=== PATIENT | female | born 1955 | race African-American/Black ===

== ENCOUNTER 2017-06-01 19:21 | Emergency (ER) | payer MEDICAID ==
[~2017-06-01] VITALS: Ht 170.2 cm; Wt 81.8 kg
[~2017-06-01 19:21] MED LIST: LASIX; MOTRIN; POTASSIUM; RISP1TAB89; TRAM50TA2
[2017-06-01] MEDS ORDERED: GABA-533 PO (19:36)
[2017-06-01] MEDS ORDERED: ACETAMINOPHEN 325 MG TABLET PO ONE (20:30)
[2017-06-01 21:16] VITALS: BP 141/84
== END 2017-06-01 21:49 | disposition home or self-care (01) ==
LOC: EMS 19:23
DX: H57.13 Ocular pain, bilateral (principal); J45.909 Unspecified asthma, uncomplicated; Z88.0 Allergy status to penicillin; F17.210 Nicotine dependence, cigarettes, uncomplicated
CPT/HCPCS: 99283

== ENCOUNTER 2018-10-24 12:51 | Inpatient (IN) | payer MEDICAID ==
[~2018-10-24] VITALS: Ht 172.7 cm; Wt 99.3 kg
[~2018-10-24 12:51] MED LIST changes: +GABA-533 PO
[2018-10-24] MEDS ORDERED: VANCOMYCIN HCL 1 GM/D5% WATER 200 ML IV ONE (13:45)
[2018-10-24] MEDS ORDERED: KETOROLAC TROMETHAMINE 30 MG/ML VIAL IVP ONE (14:00)
[2018-10-24 14:16] LABS: BASOPHILS % (AUTO) 0.4 % (0.0-2.0); EOSINOPHILS % (AUTO) 0.4 % (1.0-6.0); HEMATOCRIT 39.5 % (36-46); HEMOGLOBIN 13.1 g/dL (12.0-16.0); LYMPHOCYTES # (AUTO) 1.1 K/uL (1.0-4.8); LYMPHOCYTES % (AUTO) 12.1 % (22.0-44.0); MEAN CORPUSCULAR HEMOGLOBIN 31.7 pg (26.0-34.0); MEAN CORPUSCULAR HGB CONC 33.1 G/dL (31.0-37.0); MEAN CORPUSCULAR VOLUME 96 fL (80-100); MONOCYTES # (AUTO) 0.8 K/uL (0.1-1.0); MONOCYTES % (AUTO) 9.1 % (2.0-9.0); PLATELET COUNT (AUTO) 176 K/uL (150-450); RED BLOOD CELL COUNT(AUTO) 4.12 MIL/uL (4.00-5.20); RED CELL DISTRIBUTION WIDTH 13.1 % (11.5-14.5)
[2018-10-24 14:29] LABS: ANION GAP 12 mmol/L (8-16); CALCIUM, TOTAL 9.6 mg/dL (8.8-10.5); CARBON DIOXIDE 23 mmol/L (22-29); CHLORIDE 101 mmol/L (98-107); CREATININE 0.87 mg/dL (0.60-1.30); GLOMERULAR FILTR. RATE CALC > 60 mL/min (>60); GLUCOSE,RANDOM 83 mg/dL (70-110); POTASSIUM 3.5 mmol/L (3.5-5.1); SODIUM SERUM 136 mmol/L (136-145); UREA NITROGEN, BLOOD 14 mg/dL (7-18)
[2018-10-24 14:36] LABS: LACTIC ACID 1.4 mmol/L (0.4-2.0)
[2018-10-24 14:41] LABS: B-TYPE NATRIURETIC PEPTIDE 102 pg/mL (0-100)
[2018-10-24 14:42] LABS: ALANINE AMINOTRANSFERASE 33 U/L (12-78); ALBUMIN 3.3 g/dL (3.4-5.0); ALKALINE PHOSPHATASE 132 U/L (46-116); ASPARTATE AMINOTRANSFERASE 30 U/L (15-37); BILIRUBIN,TOTAL 0.9 mg/dL (0.1-1.0); TOTAL PROTEIN, SERUM 8.4 g/dL (6.4-8.2)
[2018-10-24] MEDS ORDERED: ONDANSETRON HCL 4 MG/2 ML VIAL IVP PRN ×2 (15:00→15:15)
[2018-10-24] MEDS ORDERED: LEVOFLOXACIN 500 MG/D5% WATER 100 ML IV SCH (15:00)
[2018-10-24] MEDS ORDERED: ACETAMINOPHEN 325 MG TABLET PO PRN ×2 (15:00→15:15)
[2018-10-24] MEDS ORDERED: MAGNESIUM HYDROXIDE SUSPENSION 30 ML UDCUP PO PRN (15:15)
[2018-10-24] MEDS ORDERED: MORPHINE SULFATE 2 MG/ML SYRINGE IVP PRN (15:15)
[2018-10-24] MEDS ORDERED: ALBUTEROL SULFATE 2.5 MG/0.5 ML NEB SOLUTION NEB PRN (15:15)
[2018-10-24] MEDS ORDERED: BISACODYL 10 MG RECTAL RECTAL SUPPOSITORY PR PRN (15:15)
[2018-10-24] MEDS ORDERED: IPRATROPIUM BROMIDE 0.5 MG/2.5 ML NEB SOLUTION NEB PRN (15:15)
[2018-10-24] MEDS ORDERED: TraMADol HCL 50 MG TABLET PO PRN (15:15)
[2018-10-24] MEDS ORDERED: DOCUSATE SODIUM 100 MG CAPSULE PO PRN (15:15)
[2018-10-24] MEDS ORDERED: 0.9% SODIUM CHLORIDE 10 ML SYRINGE IVP PRN (15:15)
[2018-10-24] MEDS ORDERED: SODIUM CHLORIDE 0.9% 500 ML IV ONE (15:50)
[2018-10-24 16:00] VITALS: BP 114/69
[2018-10-24] MEDS: LACTOBACILLUS ACIDOPHILUS/BULGARICUS TABLET PO SCH ×2 (17:21→21:27)
[2018-10-24] MEDS ORDERED: ALBUTEROL SULFATE 2.5 MG/0.5 ML NEB SOLUTION NEB SCH (18:00)
[2018-10-24] MEDS ORDERED: PNEUMOCOCCAL VACCINE POLYVALENT 0.5 ML VIAL [PPSV23] IM ONE (20:45)
[2018-10-24] MEDS: HEPARIN SODIUM,PORCINE 5,000 UNITS/ML VIAL SQ SCH (21:27)
[2018-10-24] MEDS: FAMOTIDINE 20 MG TABLET PO SCH (21:27)
[2018-10-25 00:15] VITALS: BP 118/74
[2018-10-25 03:30] VITALS: BP 121/76
[2018-10-25 05:18] LABS: AMPHET/METH SCREEN,URINE POSITIVE (NEGATIVE); BARBITURATE SCREEN, URINE NEGATIVE (NEGATIVE); BENZODIAZEPINES SCREEN,URINE NEGATIVE (NEGATIVE); CANNABINOID SCREEN,URINE POSITIVE (NEGATIVE); COCAINE SCREEN,URINE POSITIVE (NEGATIVE); METHADONE SCREEN, URINE NEGATIVE (NEGATIVE); OPIATE SCREEN,URINE POSITIVE (NEGATIVE); PHENCYCLIDINE SCREEN,URINE NEGATIVE (NEGATIVE)
[2018-10-25] MEDS ORDERED: IPRATROPIUM BROMIDE 0.5 MG/2.5 ML NEB SOLUTION NEB PRN (06:15)
[2018-10-25] MEDS ORDERED: ALBUTEROL SULFATE 2.5 MG/0.5 ML NEB SOLUTION NEB PRN (06:15)
[2018-10-25 06:19] LABS: BASOPHILS % (AUTO) 0.5 % (0.0-2.0); EOSINOPHILS % (AUTO) 3.7 % (1.0-6.0); HEMOGLOBIN 11.7 g/dL (12.0-16.0); LYMPHOCYTES # (AUTO) 1.5 K/uL (1.0-4.8); LYMPHOCYTES % (AUTO) 34.7 % (22.0-44.0); MEAN CORPUSCULAR HEMOGLOBIN 32.4 pg (26.0-34.0); MEAN CORPUSCULAR HGB CONC 33.3 G/dL (31.0-37.0); MEAN CORPUSCULAR VOLUME 98 fL (80-100); MONOCYTES # (AUTO) 0.4 K/uL (0.1-1.0); MONOCYTES % (AUTO) 8.4 % (2.0-9.0); NEUTROPHILS # (AUTO) 2.2 K/uL (1.8-7.7); NEUTROPHILS % (AUTO) 52.7 % (40.0-70.0); PLATELET COUNT (AUTO) 131 K/uL (150-450); RED CELL DISTRIBUTION WIDTH 13.6 % (11.5-14.5)
[2018-10-25] MEDS: VANCOMYCIN HCL 1 GM/D5% WATER 200 ML IV SCH ×2 (06:30→17:59)
[2018-10-25] MEDS ORDERED: MORPHINE SULFATE 2 MG/ML SYRINGE IVP PRN (06:30)
[2018-10-25 06:49] LABS: ALANINE AMINOTRANSFERASE 23 U/L (12-78); ALBUMIN 2.7 g/dL (3.4-5.0); ALKALINE PHOSPHATASE 109 U/L (46-116); ANION GAP 8 mmol/L (8-16); ASPARTATE AMINOTRANSFERASE 25 U/L (15-37); BILIRUBIN,TOTAL 0.6 mg/dL (0.1-1.0); CALCIUM, TOTAL 8.6 mg/dL (8.8-10.5); CARBON DIOXIDE 27 mmol/L (22-29); CHLORIDE 103 mmol/L (98-107); CREATININE 0.93 mg/dL (0.60-1.30); GLOMERULAR FILTR. RATE CALC > 60 mL/min (>60); GLUCOSE,RANDOM 85 mg/dL (70-110); POTASSIUM 3.7 mmol/L (3.5-5.1); SODIUM SERUM 138 mmol/L (136-145); UREA NITROGEN, BLOOD 16 mg/dL (7-18)
[2018-10-25 07:25] VITALS: BP 100/55
[2018-10-25] MEDS: HEPARIN SODIUM,PORCINE 5,000 UNITS/ML VIAL SQ SCH ×2 (07:39→20:50)
[2018-10-25] MEDS: LACTOBACILLUS ACIDOPHILUS/BULGARICUS TABLET PO SCH ×2 (07:39→20:49)
[2018-10-25] MEDS: FAMOTIDINE 20 MG TABLET PO SCH ×2 (07:39→20:49)
[2018-10-25 11:10] VITALS: BP 111/61
[2018-10-25] MEDS: MULTIVITAMINS, THERAPEUTIC TABLET PO SCH (13:36)
[2018-10-25] MEDS: MAGNESIUM OXIDE 400 MG TABLET PO PRN ×3 (13:36→23:48)
[2018-10-25 15:10] VITALS: BP 104/57
[2018-10-25] MEDS: LEVOFLOXACIN 500 MG/D5% WATER 100 ML IV SCH (16:48)
[2018-10-25] MEDS: TraMADol HCL 50 MG TABLET PO PRN ×2 (18:02→23:48)
[2018-10-25 19:00] VITALS: BP 120/74
[2018-10-25] MEDS: GABAPENTIN 400 MG CAPSULE PO SCH (20:49)
[2018-10-25] MEDS: IPRATROPIUM BROMIDE 0.5 MG/2.5 ML NEB SOLUTION NEB SCH (21:05)
[2018-10-25] MEDS: ALBUTEROL SULFATE 2.5 MG/0.5 ML NEB SOLUTION NEB SCH (21:05)
[2018-10-26 00:03] VITALS: BP 121/76
[2018-10-26] MEDS: ALBUTEROL SULFATE 2.5 MG/0.5 ML NEB SOLUTION NEB SCH ×4 (02:00→20:00)
[2018-10-26] MEDS: IPRATROPIUM BROMIDE 0.5 MG/2.5 ML NEB SOLUTION NEB SCH ×4 (02:00→20:00)
[2018-10-26 04:00] VITALS: BP 122/93
[2018-10-26 06:04] LABS: ANION GAP 8 mmol/L (8-16); CALCIUM, TOTAL 8.9 mg/dL (8.8-10.5); CARBON DIOXIDE 27 mmol/L (22-29); CHLORIDE 106 mmol/L (98-107); CREATININE 0.89 mg/dL (0.60-1.30); GLOMERULAR FILTR. RATE CALC > 60 mL/min (>60); GLUCOSE,RANDOM 94 mg/dL (70-110); POTASSIUM 3.9 mmol/L (3.5-5.1); SODIUM SERUM 141 mmol/L (136-145); UREA NITROGEN, BLOOD 15 mg/dL (7-18); VANCOMYCIN,RANDOM 12.3 mcg/mL (25.0-50.0)
[2018-10-26] MEDS: VANCOMYCIN HCL 1 GM/D5% WATER 200 ML IV SCH (07:08)
[2018-10-26] MEDS: FAMOTIDINE 20 MG TABLET PO SCH ×2 (08:19→20:28)
[2018-10-26] MEDS: LACTOBACILLUS ACIDOPHILUS/BULGARICUS TABLET PO SCH ×2 (08:19→20:28)
[2018-10-26] MEDS: MULTIVITAMINS, THERAPEUTIC TABLET PO SCH (08:20)
[2018-10-26] MEDS: GABAPENTIN 400 MG CAPSULE PO SCH ×2 (08:20→20:29)
[2018-10-26] MEDS: HEPARIN SODIUM,PORCINE 5,000 UNITS/ML VIAL SQ SCH ×2 (08:20→20:29)
[2018-10-26] MEDS: MAGNESIUM OXIDE 400 MG TABLET PO PRN ×3 (08:20→17:22)
[2018-10-26 08:47] VITALS: BP 143/86
[2018-10-26 12:32] VITALS: BP 109/73
[2018-10-26 15:45] VITALS: BP 149/90
[2018-10-26] MEDS: LEVOFLOXACIN 500 MG/D5% WATER 100 ML IV SCH (17:22)
[2018-10-26] MEDS ORDERED: SODIUM CHLORIDE 0.9% 500 ML IV ONE (17:35)
[2018-10-26] MEDS: VANCOMYCIN HCL 1.25 GM in DEXTROSE 5%-WATER 250 ML IV SCH (18:34)
[2018-10-26 20:25] VITALS: BP 126/85
[2018-10-27] MEDS: IPRATROPIUM BROMIDE 0.5 MG/2.5 ML NEB SOLUTION NEB SCH ×3 (02:00→14:00)
[2018-10-27] MEDS: ALBUTEROL SULFATE 2.5 MG/0.5 ML NEB SOLUTION NEB SCH ×3 (02:00→14:00)
[2018-10-27 05:17] VITALS: BP 136/89
[2018-10-27] MEDS: VANCOMYCIN HCL 1.25 GM in DEXTROSE 5%-WATER 250 ML IV SCH (05:52)
[2018-10-27 06:22] LABS: ANION GAP 7 mmol/L (8-16); CALCIUM, TOTAL 9.5 mg/dL (8.8-10.5); CARBON DIOXIDE 27 mmol/L (22-29); CHLORIDE 104 mmol/L (98-107); CREATININE 0.84 mg/dL (0.60-1.30); GLOMERULAR FILTR. RATE CALC > 60 mL/min (>60); GLUCOSE,RANDOM 89 mg/dL (70-110); POTASSIUM 4.3 mmol/L (3.5-5.1); SODIUM SERUM 138 mmol/L (136-145); UREA NITROGEN, BLOOD 11 mg/dL (7-18)
[2018-10-27 07:15] VITALS: BP 136/85
[2018-10-27] MEDS: LACTOBACILLUS ACIDOPHILUS/BULGARICUS TABLET PO SCH (08:55)
[2018-10-27] MEDS: GABAPENTIN 400 MG CAPSULE PO SCH (08:56)
[2018-10-27] MEDS: HEPARIN SODIUM,PORCINE 5,000 UNITS/ML VIAL SQ SCH (08:56)
[2018-10-27] MEDS: MULTIVITAMINS, THERAPEUTIC TABLET PO SCH (08:56)
[2018-10-27] MEDS: FAMOTIDINE 20 MG TABLET PO SCH (08:56)
[2018-10-27 11:07] VITALS: BP 121/83
[2018-10-27] MEDS ORDERED: CIPR-278 PO (11:51)
[2018-10-27] MEDS ORDERED: BACTDSB PO (11:52)
[2018-10-27 15:18] VITALS: BP 143/84
== END 2018-10-27 16:30 | disposition home or self-care (01) | DRG 383 ==
LOC: EMS 12:51 → 4E 15:07
PROVIDERS: ADMIT Internal Medicine; ATTEND Internal Medicine
DX: L03.116 Cellulitis of left lower limb (principal); D61.818 Other pancytopenia; E66.01 Morbid (severe) obesity due to excess calories; I50.9 Heart failure, unspecified; F25.9 Schizoaffective disorder, unspecified; G62.9 Polyneuropathy, unspecified; L03.115 Cellulitis of right lower limb; F14.90 Cocaine use, unspecified, uncomplicated; F17.210 Nicotine dependence, cigarettes, uncomplicated; J45.909 Unspecified asthma, uncomplicated; Z68.33 Body mass index [BMI] 33.0-33.9, adult; Z59.0 Homelessness; Z88.1 Allergy status to other antibiotic agents
CPT/HCPCS: 80307; 83605; 83735; 84145; 87040; 87070; 87081; 87205; 93306; 93925; 93970; 94640; 96365; 96375; 97116; 97162; G0378; G0480; J1644; J1885; J1956; J3370; J7040; J7060

== ENCOUNTER 2019-01-10 17:18 | Emergency (ER) | payer MEDICAID ==
[~2019-01-10] VITALS: Ht 170.2 cm; Wt 115.0 kg
[~2019-01-10 17:18] MED LIST changes: +BACTDSB PO; +CIPR-278 PO; -LASIX; -MOTRIN; -POTASSIUM; -RISP1TAB89; -TRAM50TA2
[2019-01-10] MEDS ORDERED: CITA-106 PO (17:51)
[2019-01-10] MEDS ORDERED: ATOR40TA28 PO (17:51)
[2019-01-10] MEDS ORDERED: FURO40I IM (17:51)
[2019-01-10] MEDS ORDERED: ALBU8HFA IH (17:51)
[2019-01-10] MEDS ORDERED: METO25 PO (17:51)
[2019-01-10 18:06] VITALS: BP 126/89
[2019-01-10] MEDS ORDERED: FURO40 PO (18:08)
[2019-01-10] MEDS ORDERED: ACETAMINOPHEN 500 MG TABLET PO ONE (18:15)
== END 2019-01-10 18:42 | disposition home or self-care (01) ==
LOC: EMS 17:29
DX: S81.802A Unspecified open wound, left lower leg, initial encounter (principal); S81.801A Unspecified open wound, right lower leg, initial encounter; G89.29 Other chronic pain; M79.662 Pain in left lower leg; M79.661 Pain in right lower leg; I50.9 Heart failure, unspecified; J45.909 Unspecified asthma, uncomplicated; F10.20 Alcohol dependence, uncomplicated; F11.90 Opioid use, unspecified, uncomplicated; F15.90 Other stimulant use, unspecified, uncomplicated; Z59.0 Homelessness; Z79.899 Other long term (current) drug therapy; Z88.1 Allergy status to other antibiotic agents; Z98.890 Other specified postprocedural states; X58.XXXA Exposure to other specified factors, initial encounter; Y93.89 Activity, other specified; Y92.89 Other specified places as the place of occurrence of the external cause; Y99.8 Other external cause status

== ENCOUNTER 2019-01-21 17:17 | Inpatient (IN) | payer MEDICAID ==
[~2019-01-21] VITALS: Ht 172.7 cm; Wt 103.5 kg
[~2019-01-21 17:17] MED LIST changes: +ALBU8HFA IH; +ATOR40TA28 PO; -BACTDSB PO; -CIPR-278 PO; +CITA-106 PO; +FURO40 PO; +METO25 PO
[2019-01-21 18:01] LABS: BASOPHILS % (AUTO) 0.5 % (0.0-2.0); EOSINOPHILS % (AUTO) 2.3 % (1.0-6.0); LYMPHOCYTES # (AUTO) 1.2 K/uL (1.0-4.8); LYMPHOCYTES % (AUTO) 18.8 % (22.0-44.0); MEAN CORPUSCULAR HEMOGLOBIN 32.1 pg (26.0-34.0); MEAN CORPUSCULAR HGB CONC 32.5 G/dL (31.0-37.0); MEAN CORPUSCULAR VOLUME 99 fL (80-100); MONOCYTES # (AUTO) 0.7 K/uL (0.1-1.0); MONOCYTES % (AUTO) 11.2 % (2.0-9.0); NEUTROPHILS # (AUTO) 4.4 K/uL (1.8-7.7); NEUTROPHILS % (AUTO) 67.2 % (40.0-70.0); PLATELET COUNT (AUTO) 200 K/uL (150-450); RED BLOOD CELL COUNT(AUTO) 3.75 MIL/uL (4.00-5.20); RED CELL DISTRIBUTION WIDTH 13.4 % (11.5-14.5)
[2019-01-21 18:30] LABS: ANION GAP 14 mmol/L (8-16); CALCIUM, TOTAL 9.7 mg/dL (8.8-10.5); CARBON DIOXIDE 22 mmol/L (22-29); CHLORIDE 102 mmol/L (98-107); CREATININE 0.79 mg/dL (0.60-1.30); GLOMERULAR FILTR. RATE CALC > 60 mL/min (>60); GLUCOSE,RANDOM 109 mg/dL (70-110); POTASSIUM 3.6 mmol/L (3.5-5.1); SODIUM SERUM 138 mmol/L (136-145); UREA NITROGEN, BLOOD 13 mg/dL (7-18)
[2019-01-21 18:35] LABS: ALBUMIN 3.5 g/dL (3.4-5.0); ALKALINE PHOSPHATASE 132 U/L (46-116); ASPARTATE AMINOTRANSFERASE 33 U/L (15-37); TOTAL PROTEIN, SERUM 8.2 g/dL (6.4-8.2)
[2019-01-21 18:36] LABS: LACTIC ACID 0.8 mmol/L (0.4-2.0)
[2019-01-21] MEDS ORDERED: ACETAMINOPHEN 500 MG TABLET PO ONE (18:45)
[2019-01-21] MEDS ORDERED: KETOROLAC TROMETHAMINE 30 MG/ML VIAL IVP ONE (18:45)
[2019-01-21 18:52] LABS: MAGNESIUM 1.8 mg/dL (1.80-2.40)
[2019-01-21 18:54] LABS: APPEARANCE,URINE CLEAR (CLEAR); BILIRUBIN,URINE PRELIM. POSITIVE (NEGATIVE); GLUCOSE, URINE (UA) NEGATIVE (NEGATIVE); KETONES,URINE NEGATIVE (NEGATIVE); LEUKOCYTE ESTERASE ,URINE SMALL (NEGATIVE); NITRATE,URINE NEGATIVE (NEGATIVE); OCCULT BLOOD,URINE NEGATIVE (NEGATIVE); PROTEIN,URINE NEGATIVE (NEGATIVE)
[2019-01-21 18:59] LABS: AMPHET/METH SCREEN,URINE POSITIVE (NEGATIVE); BARBITURATE SCREEN, URINE NEGATIVE (NEGATIVE); BENZODIAZEPINES SCREEN,URINE NEGATIVE (NEGATIVE); CANNABINOID SCREEN,URINE POSITIVE (NEGATIVE); COCAINE SCREEN,URINE POSITIVE (NEGATIVE); METHADONE SCREEN, URINE NEGATIVE (NEGATIVE); OPIATE SCREEN,URINE NEGATIVE (NEGATIVE)
[2019-01-21 19:00] LABS: PHENCYCLIDINE SCREEN,URINE NEGATIVE (NEGATIVE)
[2019-01-21 19:05] LABS: BACTERIA,URINE Rare /HPF (None Seen); RBC,URINE 0-2 /HPF (0-2)
[2019-01-21 19:06] LABS: SQUAMOUS EPITHELIAL CELL,UR Moderate /LPF (None Seen)
[2019-01-21 19:23] LABS: ALANINE AMINOTRANSFERASE 28 U/L (12-78)
[2019-01-21] MEDS ORDERED: VANCOMYCIN HCL 1 GM/D5% WATER 200 ML IV ONE ×2 (20:00→23:45)
[2019-01-21] MEDS ORDERED: IOVERSOL 350 MG/ML 100 ML VIAL ONE (20:05)
[2019-01-21] MEDS ORDERED: SODIUM CHLORIDE 0.9% 100 ML ONE (20:05)
[2019-01-21] MEDS ORDERED: CLINDAMYCIN 900 MG/D5% WATER 50 ML IV ONE (20:15)
[2019-01-21] MEDS ORDERED: PIPERACILLIN/TAZO 3.375 GM/D5W 50 ML IV ONE (20:15)
[2019-01-21] MEDS ORDERED: ACETAMINOPHEN 325 MG TABLET PO PRN ×2 (21:30→22:45)
[2019-01-21] MEDS ORDERED: ONDANSETRON HCL 4 MG/2 ML VIAL IVP PRN ×2 (21:30→22:45)
[2019-01-21] MEDS ORDERED: 0.9% SODIUM CHLORIDE 10 ML SYRINGE IVP PRN (21:30)
[2019-01-21] MEDS ORDERED: BISACODYL 10 MG RECTAL RECTAL SUPPOSITORY PR PRN (22:45)
[2019-01-21] MEDS ORDERED: ZOLPIDEM TARTRATE 5 MG TABLET PO PRN (22:45)
[2019-01-21] MEDS ORDERED: MORPHINE SULFATE 2 MG/ML SYRINGE IVP PRN (22:45)
[2019-01-21] MEDS ORDERED: MAGNESIUM HYDROXIDE SUSPENSION 30 ML UDCUP PO PRN (22:45)
[2019-01-21 23:22] VITALS: BP 139/74
[2019-01-22] MEDS ORDERED: SODIUM CHLORIDE 0.9% 250 ML IV ONE (00:17)
[2019-01-22] MEDS: HEPARIN SODIUM,PORCINE 5,000 UNITS/ML VIAL SQ SCH ×4 (00:30→23:32)
[2019-01-22 04:56] VITALS: BP 123/54
[2019-01-22 07:47] VITALS: BP 114/82
[2019-01-22] MEDS: DOCUSATE SODIUM 100 MG CAPSULE PO SCH ×2 (08:38→19:41)
[2019-01-22] MEDS: VANCOMYCIN HCL 1.5 GM in DEXTROSE 5%-WATER 250 ML IV SCH ×2 (08:38→19:40)
[2019-01-22] MEDS: PANTOPRAZOLE SODIUM 40 MG DR TABLET PO SCH (08:38)
[2019-01-22] MEDS: HYDROCODONE/ACETAMINOPHEN 5-325 MG TABLET PO PRN ×2 (10:55→19:41)
[2019-01-22 11:58] VITALS: BP 138/95
[2019-01-22 16:11] VITALS: BP 125/87
[2019-01-22 20:00] VITALS: BP 151/100
[2019-01-22 21:31] VITALS: BP 144/93
[2019-01-23 08:00] VITALS: BP 130/91
[2019-01-23] MEDS: DOCUSATE SODIUM 100 MG CAPSULE PO SCH ×2 (08:10→20:10)
[2019-01-23] MEDS: PANTOPRAZOLE SODIUM 40 MG DR TABLET PO SCH (08:10)
[2019-01-23] MEDS: HYDROCODONE/ACETAMINOPHEN 5-325 MG TABLET PO PRN ×2 (08:10→17:57)
[2019-01-23] MEDS: HEPARIN SODIUM,PORCINE 5,000 UNITS/ML VIAL SQ SCH ×3 (08:11→23:48)
[2019-01-23] MEDS: VANCOMYCIN HCL 1.5 GM in DEXTROSE 5%-WATER 250 ML IV SCH (08:11)
[2019-01-23 08:16] LABS: ANION GAP 11 mmol/L (8-16); CALCIUM, TOTAL 9.2 mg/dL (8.8-10.5); CARBON DIOXIDE 24 mmol/L (22-29); CHLORIDE 103 mmol/L (98-107); CREATININE 0.84 mg/dL (0.60-1.30); GLOMERULAR FILTR. RATE CALC > 60 mL/min (>60); GLUCOSE,RANDOM 102 mg/dL (70-110); POTASSIUM 3.7 mmol/L (3.5-5.1); SODIUM SERUM 138 mmol/L (136-145); UREA NITROGEN, BLOOD 8 mg/dL (7-18); VANCOMYCIN,RANDOM 20.2 mcg/mL (25.0-50.0)
[2019-01-23 14:36] VITALS: BP 152/95
[2019-01-23 19:43] VITALS: BP 129/74
[2019-01-23] MEDS: VANCOMYCIN HCL 1.25 GM in DEXTROSE 5%-WATER 250 ML IV SCH (20:10)
[2019-01-24] VITALS (7 sets, daily range): BP systolic 119–145; BP diastolic 67–110
[2019-01-24 05:42] LABS: ANION GAP 9 mmol/L (8-16); CALCIUM, TOTAL 9.1 mg/dL (8.8-10.5); CARBON DIOXIDE 26 mmol/L (22-29); CHLORIDE 104 mmol/L (98-107); CREATININE 0.83 mg/dL (0.60-1.30); GLOMERULAR FILTR. RATE CALC > 60 mL/min (>60); GLUCOSE,RANDOM 96 mg/dL (70-110); POTASSIUM 3.7 mmol/L (3.5-5.1); SODIUM SERUM 139 mmol/L (136-145); UREA NITROGEN, BLOOD 6 mg/dL (7-18)
[2019-01-24] MEDS: DOCUSATE SODIUM 100 MG CAPSULE PO SCH ×2 (08:42→21:42)
[2019-01-24] MEDS: VANCOMYCIN HCL 1.25 GM in DEXTROSE 5%-WATER 250 ML IV SCH ×2 (08:42→21:42)
[2019-01-24] MEDS: PANTOPRAZOLE SODIUM 40 MG DR TABLET PO SCH (08:42)
[2019-01-24] MEDS: HEPARIN SODIUM,PORCINE 5,000 UNITS/ML VIAL SQ SCH ×2 (08:43→15:52)
[2019-01-24] MEDS: MULTIVITAMINS WITH MINERALS, THERAPEUTIC TABLET PO SCH (08:43)
[2019-01-24] MEDS: HYDROCODONE/ACETAMINOPHEN 5-325 MG TABLET PO PRN ×3 (08:45→21:42)
[2019-01-25] MEDS: HEPARIN SODIUM,PORCINE 5,000 UNITS/ML VIAL SQ SCH ×2 (01:00→09:04)
[2019-01-25 04:25] VITALS: BP 131/88
[2019-01-25 05:49] LABS: ANION GAP 10 mmol/L (8-16); CALCIUM, TOTAL 9.4 mg/dL (8.8-10.5); CARBON DIOXIDE 24 mmol/L (22-29); CHLORIDE 105 mmol/L (98-107); CREATININE 0.87 mg/dL (0.60-1.30); GLOMERULAR FILTR. RATE CALC > 60 mL/min (>60); GLUCOSE,RANDOM 104 mg/dL (70-110); POTASSIUM 3.7 mmol/L (3.5-5.1); SODIUM SERUM 139 mmol/L (136-145); UREA NITROGEN, BLOOD 10 mg/dL (7-18)
[2019-01-25 08:02] VITALS: BP 153/68
[2019-01-25] MEDS: DOCUSATE SODIUM 100 MG CAPSULE PO SCH (09:04)
[2019-01-25] MEDS: VANCOMYCIN HCL 1.25 GM in DEXTROSE 5%-WATER 250 ML IV SCH (09:04)
[2019-01-25] MEDS: PANTOPRAZOLE SODIUM 40 MG DR TABLET PO SCH (09:05)
[2019-01-25] MEDS: MULTIVITAMINS WITH MINERALS, THERAPEUTIC TABLET PO SCH (09:05)
[2019-01-25] MEDS ORDERED: SODIUM CHLORIDE 0.9% 250 ML IV ONE (09:10)
[2019-01-25] MEDS: HYDROCODONE/ACETAMINOPHEN 5-325 MG TABLET PO PRN (09:13)
[2019-01-25] MEDS ORDERED: ALBUTEROL SULFATE HFA 90 MCG/PUFF 8 GM INHALER IH PRN (10:00)
[2019-01-25 12:29] VITALS: BP 146/88
[2019-01-25 15:57] VITALS: BP 141/70
[2019-01-25] MEDS ORDERED: FUROSEMIDE 40 MG TABLET PO SCH (21:00)
[2019-01-26] MEDS ORDERED: METOPROLOL TARTRATE 25 MG TABLET PO SCH (09:00)
[2019-01-26] MEDS ORDERED: ATORVASTATIN CALCIUM 40 MG TABLET PO SCH (09:00)
[2019-01-26] MEDS ORDERED: CITALOPRAM HYDROBROMIDE 20 MG TABLET PO SCH (09:00)
== END 2019-01-25 16:00 | DRG 383 ==
LOC: EMS 17:17 → 4E 20:00 → 6N 01-25 07:50
PROVIDERS: ADMIT Internal Medicine; ATTEND Internal Medicine
DX: L03.115 Cellulitis of right lower limb (principal); I11.0 Hypertensive heart disease with heart failure; I50.9 Heart failure, unspecified; E11.9 Type 2 diabetes mellitus without complications; E78.5 Hyperlipidemia, unspecified; L03.116 Cellulitis of left lower limb; J45.909 Unspecified asthma, uncomplicated; F17.210 Nicotine dependence, cigarettes, uncomplicated; F14.90 Cocaine use, unspecified, uncomplicated; Z79.899 Other long term (current) drug therapy
CPT/HCPCS: 73701; 83605; 83735; 87040; 93005; 93970; 97116; 97162; 97530; G0378; J1644; J1885; J3370; J3490; J7050; J7060

== ENCOUNTER 2019-02-16 07:12 | Inpatient (IN) | payer MEDICAID ==
[~2019-02-16] VITALS: Ht 170.2 cm; Wt 113.6 kg
[2019-02-16 09:03] LABS: BASOPHILS % (AUTO) 0.4 % (0.0-2.0); EOSINOPHILS % (AUTO) 1.4 % (1.0-6.0); HEMATOCRIT 40.3 % (36-46); HEMOGLOBIN 13.7 g/dL (12.0-16.0); LYMPHOCYTES % (AUTO) 24.9 % (22.0-44.0); MEAN CORPUSCULAR HEMOGLOBIN 32.9 pg (26.0-34.0); MEAN CORPUSCULAR VOLUME 97 fL (80-100); MONOCYTES # (AUTO) 0.6 K/uL (0.1-1.0); MONOCYTES % (AUTO) 7.6 % (2.0-9.0); NEUTROPHILS # (AUTO) 5.2 K/uL (1.8-7.7); NEUTROPHILS % (AUTO) 65.7 % (40.0-70.0); PLATELET COUNT (AUTO) 144 K/uL (150-450); RED BLOOD CELL COUNT(AUTO) 4.16 MIL/uL (4.00-5.20); RED CELL DISTRIBUTION WIDTH 12.9 % (11.5-14.5)
[2019-02-16 09:13] LABS: ANION GAP 12 mmol/L (8-16); CARBON DIOXIDE 26 mmol/L (22-29); CHLORIDE 99 mmol/L (98-107); CREATININE 0.95 mg/dL (0.60-1.30); GLOMERULAR FILTR. RATE CALC > 60 mL/min (>60); GLUCOSE,RANDOM 75 mg/dL (70-110); POTASSIUM 3.7 mmol/L (3.5-5.1); SODIUM SERUM 137 mmol/L (136-145); UREA NITROGEN, BLOOD 26 mg/dL (7-18)
[2019-02-16 09:21] LABS: LACTIC ACID 1.4 mmol/L (0.4-2.0)
[2019-02-16 09:38] LABS: ALANINE AMINOTRANSFERASE 35 U/L (12-78); ALBUMIN 4.4 g/dL (3.4-5.0); ALKALINE PHOSPHATASE 133 U/L (46-116); ASPARTATE AMINOTRANSFERASE 30 U/L (15-37); CREATINE KINASE, TOTAL ONLY 189 U/L (26-192); TOTAL PROTEIN, SERUM 9.3 g/dL (6.4-8.2)
[2019-02-16] MEDS ORDERED: VANCOMYCIN HCL 1 GM/D5% WATER 200 ML IV ONE (10:45)
[2019-02-16] MEDS ORDERED: ONDANSETRON HCL 4 MG/2 ML VIAL IVP PRN ×2 (13:00→15:30)
[2019-02-16] MEDS ORDERED: 0.9% SODIUM CHLORIDE 10 ML SYRINGE IVP PRN (13:00)
[2019-02-16] MEDS ORDERED: ACETAMINOPHEN 325 MG TABLET PO PRN ×2 (13:00→15:30)
[2019-02-16 14:34] VITALS: BP 100/71
[2019-02-16] MEDS ORDERED: BISACODYL 10 MG RECTAL RECTAL SUPPOSITORY PR PRN (15:30)
[2019-02-16] MEDS ORDERED: MAGNESIUM HYDROXIDE SUSPENSION 30 ML UDCUP PO PRN (15:30)
[2019-02-16] MEDS ORDERED: ZOLPIDEM TARTRATE 5 MG TABLET PO PRN (15:30)
[2019-02-16] MEDS ORDERED: MORPHINE SULFATE 2 MG/ML SYRINGE IVP PRN (15:30)
[2019-02-16] MEDS ORDERED: ALBUTEROL SULFATE HFA 90 MCG/PUFF 8 GM INHALER IH PRN (15:30)
[2019-02-16] MEDS: HEPARIN SODIUM,PORCINE 5,000 UNITS/ML VIAL SQ SCH ×2 (17:16→23:36)
[2019-02-16] MEDS: VANCOMYCIN HCL 1.5 GM in DEXTROSE 5%-WATER 250 ML IV SCH (18:09)
[2019-02-16 19:29] VITALS: BP 121/68
[2019-02-16] MEDS: FUROSEMIDE 40 MG TABLET PO SCH (20:19)
[2019-02-16] MEDS: GABAPENTIN 400 MG CAPSULE PO SCH (20:19)
[2019-02-16] MEDS: HYDROCODONE/ACETAMINOPHEN 5-325 MG TABLET PO PRN (20:21)
[2019-02-16] MEDS: DOCUSATE SODIUM 100 MG CAPSULE PO SCH (20:28)
[2019-02-17 00:45] VITALS: BP 124/66
[2019-02-17 05:18] VITALS: BP 118/69
[2019-02-17] MEDS: VANCOMYCIN HCL 1.5 GM in DEXTROSE 5%-WATER 250 ML IV SCH ×2 (05:38→18:09)
[2019-02-17] MEDS: HYDROCODONE/ACETAMINOPHEN 5-325 MG TABLET PO PRN (05:38)
[2019-02-17 06:26] LABS: ANION GAP 9 mmol/L (8-16); CALCIUM, TOTAL 9.3 mg/dL (8.8-10.5); CARBON DIOXIDE 24 mmol/L (22-29); CHLORIDE 103 mmol/L (98-107); CREATININE 0.94 mg/dL (0.60-1.30); GLOMERULAR FILTR. RATE CALC > 60 mL/min (>60); GLUCOSE,RANDOM 94 mg/dL (70-110); POTASSIUM 3.4 mmol/L (3.5-5.1); SODIUM SERUM 136 mmol/L (136-145); UREA NITROGEN, BLOOD 19 mg/dL (7-18)
[2019-02-17] MEDS: FUROSEMIDE 40 MG TABLET PO SCH ×2 (08:50→20:44)
[2019-02-17] MEDS: PANTOPRAZOLE SODIUM 40 MG DR TABLET PO SCH (08:50)
[2019-02-17] MEDS: ATORVASTATIN CALCIUM 40 MG TABLET PO SCH (08:50)
[2019-02-17] MEDS: HEPARIN SODIUM,PORCINE 5,000 UNITS/ML VIAL SQ SCH ×2 (08:50→15:56)
[2019-02-17] MEDS: GABAPENTIN 400 MG CAPSULE PO SCH ×2 (08:50→20:44)
[2019-02-17] MEDS: CITALOPRAM HYDROBROMIDE 20 MG TABLET PO SCH (08:50)
[2019-02-17] MEDS: DOCUSATE SODIUM 100 MG CAPSULE PO SCH ×2 (08:51→20:44)
[2019-02-17] MEDS: METOPROLOL TARTRATE 25 MG TABLET PO SCH (08:51)
[2019-02-17 12:00] VITALS: BP 98/58
[2019-02-17] MEDS ORDERED: POTASSIUM CHL 10 MEQ/WATER 50 ML IV PRN (13:00)
[2019-02-17] MEDS ORDERED: POTASSIUM CHLORIDE 20 MEQ ER TABLET PO PRN (13:00)
[2019-02-17 17:00] VITALS: BP 126/71
[2019-02-17 19:54] VITALS: BP 123/58
[2019-02-18] MEDS: HEPARIN SODIUM,PORCINE 5,000 UNITS/ML VIAL SQ SCH ×3 (01:21→15:13)
[2019-02-18 04:57] VITALS: BP 129/81
[2019-02-18 06:46] LABS: ANION GAP 9 mmol/L (8-16); CALCIUM, TOTAL 9.5 mg/dL (8.8-10.5); CARBON DIOXIDE 26 mmol/L (22-29); CHLORIDE 104 mmol/L (98-107); CREATININE 0.81 mg/dL (0.60-1.30); GLOMERULAR FILTR. RATE CALC > 60 mL/min (>60); GLUCOSE,RANDOM 89 mg/dL (70-110); POTASSIUM 3.9 mmol/L (3.5-5.1); SODIUM SERUM 139 mmol/L (136-145); UREA NITROGEN, BLOOD 18 mg/dL (7-18); VANCOMYCIN,RANDOM 21.8 mcg/mL (25.0-50.0)
[2019-02-18 08:00] VITALS: BP 107/63
[2019-02-18] MEDS: METOPROLOL TARTRATE 25 MG TABLET PO SCH (09:00)
[2019-02-18] MEDS: GABAPENTIN 400 MG CAPSULE PO SCH ×2 (09:20→20:26)
[2019-02-18] MEDS: FUROSEMIDE 40 MG TABLET PO SCH (09:20)
[2019-02-18] MEDS: CITALOPRAM HYDROBROMIDE 20 MG TABLET PO SCH (09:20)
[2019-02-18] MEDS: DOCUSATE SODIUM 100 MG CAPSULE PO SCH ×2 (09:20→20:28)
[2019-02-18] MEDS: ATORVASTATIN CALCIUM 40 MG TABLET PO SCH (09:20)
[2019-02-18] MEDS: PANTOPRAZOLE SODIUM 40 MG DR TABLET PO SCH (09:20)
[2019-02-18] MEDS: VANCOMYCIN HCL 1.5 GM in DEXTROSE 5%-WATER 250 ML IV SCH (09:21)
[2019-02-18 12:00] VITALS: BP 116/72
[2019-02-18 16:00] VITALS: BP 98/67
[2019-02-18] MEDS: VANCOMYCIN HCL 1 GM/D5% WATER 200 ML IV SCH (18:03)
[2019-02-18 20:14] VITALS: BP 106/57
[2019-02-19 00:17] VITALS: BP 115/63
[2019-02-19] MEDS: FUROSEMIDE 40 MG TABLET PO SCH ×2 (00:23→08:52)
[2019-02-19] MEDS: HEPARIN SODIUM,PORCINE 5,000 UNITS/ML VIAL SQ SCH ×2 (00:23→08:53)
[2019-02-19 04:00] VITALS: BP 110/70
[2019-02-19] MEDS: VANCOMYCIN HCL 1 GM/D5% WATER 200 ML IV SCH (06:19)
[2019-02-19 07:41] LABS: ANION GAP 7 mmol/L (8-16); CALCIUM, TOTAL 9.4 mg/dL (8.8-10.5); CARBON DIOXIDE 30 mmol/L (22-29); CHLORIDE 102 mmol/L (98-107); CREATININE 0.85 mg/dL (0.60-1.30); GLOMERULAR FILTR. RATE CALC > 60 mL/min (>60); GLUCOSE,RANDOM 92 mg/dL (70-110); POTASSIUM 3.8 mmol/L (3.5-5.1); SODIUM SERUM 139 mmol/L (136-145); UREA NITROGEN, BLOOD 19 mg/dL (7-18)
[2019-02-19 08:00] VITALS: BP 150/89
[2019-02-19] MEDS: ATORVASTATIN CALCIUM 40 MG TABLET PO SCH (08:52)
[2019-02-19] MEDS: CITALOPRAM HYDROBROMIDE 20 MG TABLET PO SCH (08:52)
[2019-02-19] MEDS: DOCUSATE SODIUM 100 MG CAPSULE PO SCH (08:52)
[2019-02-19] MEDS: PANTOPRAZOLE SODIUM 40 MG DR TABLET PO SCH (08:52)
[2019-02-19] MEDS: METOPROLOL TARTRATE 25 MG TABLET PO SCH (08:53)
[2019-02-19] MEDS: GABAPENTIN 400 MG CAPSULE PO SCH (08:53)
[2019-02-19] MEDS ORDERED: MULTIVITAMINS WITH MINERALS, THERAPEUTIC TABLET PO SCH (09:00)
[2019-02-19] MEDS ORDERED: CIPR500S5 PO (12:02)
[2019-02-19] MEDS ORDERED: PNEUMOCOCCAL VACCINE POLYVALENT 0.5 ML VIAL [PPSV23] IM ONE (13:15)
[2019-02-19 13:20] VITALS: BP 95/62
== END 2019-02-19 14:55 | disposition home or self-care (01) | DRG 383 ==
LOC: EMS 07:14 → 4E 12:50
PROVIDERS: ADMIT Internal Medicine; ATTEND Internal Medicine
DX: L03.119 Cellulitis of unspecified part of limb (principal); I11.0 Hypertensive heart disease with heart failure; I50.32 Chronic diastolic (congestive) heart failure; F17.210 Nicotine dependence, cigarettes, uncomplicated; E78.5 Hyperlipidemia, unspecified; J45.909 Unspecified asthma, uncomplicated; Z88.1 Allergy status to other antibiotic agents
CPT/HCPCS: 83605; 83735; 84132; 87040; 87081; 90732; 93970; 96365; 97116; 97162; 97530; G0378; J1644; J3370; J7060

== ENCOUNTER 2019-03-12 15:18 | Emergency (ER) | payer MEDICAID ==
[~2019-03-12] VITALS: Ht 167.6 cm; Wt 94.5 kg
[~2019-03-12 15:18] MED LIST changes: +CIPR500S5 PO
[2019-03-12] MEDS ORDERED: SODIUM CHLORIDE 0.9% 1,000 ML IV ONE (16:00)
[2019-03-12 16:01] LABS: GLUCOSE,POINT OF CARE 95 MG/DL (70-110)
[2019-03-12 17:34] LABS: BASOPHILS % (AUTO) 0.4 % (0.0-2.0); EOSINOPHILS % (AUTO) 0.6 % (1.0-6.0); HEMATOCRIT 41.1 % (36-46); HEMOGLOBIN 13.7 g/dL (12.0-16.0); LYMPHOCYTES # (AUTO) 2.3 K/uL (1.0-4.8); LYMPHOCYTES % (AUTO) 26.7 % (22.0-44.0); MEAN CORPUSCULAR HEMOGLOBIN 32.4 pg (26.0-34.0); MEAN CORPUSCULAR HGB CONC 33.3 G/dL (31.0-37.0); MEAN CORPUSCULAR VOLUME 97 fL (80-100); MONOCYTES # (AUTO) 1.1 K/uL (0.1-1.0); MONOCYTES % (AUTO) 12.5 % (2.0-9.0); NEUTROPHILS # (AUTO) 5.2 K/uL (1.8-7.7); NEUTROPHILS % (AUTO) 59.8 % (40.0-70.0); PLATELET COUNT (AUTO) 144 K/uL (150-450); RED BLOOD CELL COUNT(AUTO) 4.22 MIL/uL (4.00-5.20); RED CELL DISTRIBUTION WIDTH 13.2 % (11.5-14.5)
[2019-03-12 18:00] LABS: ALANINE AMINOTRANSFERASE 32 U/L (12-78); ALBUMIN 4.1 g/dL (3.4-5.0); ALKALINE PHOSPHATASE 129 U/L (46-116); ANION GAP 11 mmol/L (8-16); ASPARTATE AMINOTRANSFERASE 29 U/L (15-37); BILIRUBIN,TOTAL 1.7 mg/dL (0.1-1.0); CARBON DIOXIDE 25 mmol/L (22-29); CHLORIDE 103 mmol/L (98-107); CREATININE 1.02 mg/dL (0.60-1.30); GLOMERULAR FILTR. RATE CALC > 60 mL/min (>60); GLUCOSE,RANDOM 81 mg/dL (70-110); POTASSIUM 4.4 mmol/L (3.5-5.1); SODIUM SERUM 139 mmol/L (136-145); TOTAL PROTEIN, SERUM 8.9 g/dL (6.4-8.2); UREA NITROGEN, BLOOD 25 mg/dL (7-18)
[2019-03-12] MEDS ORDERED: LOPERAMIDE HCL 2 MG CAPSULE PO ONE (18:15)
[2019-03-12 21:45] VITALS: BP 132/78
== END 2019-03-12 21:50 | disposition home or self-care (01) ==
LOC: EMS 15:19
DX: R19.7 Diarrhea, unspecified (principal); I50.9 Heart failure, unspecified; J45.909 Unspecified asthma, uncomplicated; F10.20 Alcohol dependence, uncomplicated; F17.210 Nicotine dependence, cigarettes, uncomplicated; F11.90 Opioid use, unspecified, uncomplicated; F15.90 Other stimulant use, unspecified, uncomplicated; Z79.899 Other long term (current) drug therapy; Z98.890 Other specified postprocedural states; Z88.1 Allergy status to other antibiotic agents
CPT/HCPCS: 36415; 80053; 82962; 85025; 96360; 99283; J7030

== ENCOUNTER 2019-05-02 06:37 | Inpatient (IN) | payer MEDICAID ==
[~2019-05-02] VITALS: Ht 170.2 cm; Wt 101.2 kg
[2019-05-02] MEDS ORDERED: HALOPERIDOL LACTATE 5 MG/ML VIAL ONE (09:55)
[2019-05-02] MEDS ORDERED: DiphenhydrAMINE HCL 50 MG/ML VIAL ONE (09:55)
[2019-05-02] MEDS ORDERED: LORazepam 2 MG/ML VIAL ONE (09:56)
[2019-05-02] MEDS ORDERED: HALOPERIDOL LACTATE 5 MG/ML VIAL IM ONE (10:00)
[2019-05-02] MEDS ORDERED: LORazepam 2 MG/ML VIAL IM ONE (10:00)
[2019-05-02] MEDS ORDERED: DiphenhydrAMINE HCL 50 MG/ML VIAL IM ONE (10:00)
[2019-05-02 10:57] LABS: APPEARANCE,URINE CLEAR (CLEAR); BILIRUBIN,URINE NEGATIVE (NEGATIVE); GLUCOSE, URINE (UA) NEGATIVE (NEGATIVE); KETONES,URINE TRACE mg/dL (NEGATIVE); LEUKOCYTE ESTERASE ,URINE NEGATIVE (NEGATIVE); NITRATE,URINE NEGATIVE (NEGATIVE); OCCULT BLOOD,URINE NEGATIVE (NEGATIVE); PROTEIN,URINE TRACE (NEGATIVE); UROBILINOGEN,URINE 0.2 mg/dL (<=1.0)
[2019-05-02 12:26] LABS: BASOPHILS % (AUTO) 0.3 % (0.0-2.0); EOSINOPHILS % (AUTO) 0.7 % (1.0-6.0); HEMATOCRIT 43.7 % (36-46); HEMOGLOBIN 14.7 g/dL (12.0-16.0); LYMPHOCYTES # (AUTO) 1.6 K/uL (1.0-4.8); MEAN CORPUSCULAR HEMOGLOBIN 32.9 pg (26.0-34.0); MEAN CORPUSCULAR HGB CONC 33.6 G/dL (31.0-37.0); MEAN CORPUSCULAR VOLUME 98 fL (80-100); MONOCYTES # (AUTO) 0.6 K/uL (0.1-1.0); MONOCYTES % (AUTO) 7.8 % (2.0-9.0); NEUTROPHILS # (AUTO) 5.7 K/uL (1.8-7.7); NEUTROPHILS % (AUTO) 71.2 % (40.0-70.0); PLATELET COUNT (AUTO) 147 K/uL (150-450); RED BLOOD CELL COUNT(AUTO) 4.46 MIL/uL (4.00-5.20); RED CELL DISTRIBUTION WIDTH 14.7 % (11.5-14.5)
[2019-05-02 12:36] LABS: ANION GAP 12 mmol/L (8-16); CALCIUM, TOTAL 10.1 mg/dL (8.8-10.5); CARBON DIOXIDE 25 mmol/L (22-29); CHLORIDE 100 mmol/L (98-107); CREATININE 0.88 mg/dL (0.60-1.30); GLOMERULAR FILTR. RATE CALC > 60 mL/min (>60); GLUCOSE,RANDOM 67 mg/dL (70-110); SODIUM SERUM 137 mmol/L (136-145); UREA NITROGEN, BLOOD 22 mg/dL (7-18)
[2019-05-02 12:44] LABS: INR 1.1 (0.9-1.1); PROTHROMBIN TIME 11.5 SEC (9.4-11.6)
[2019-05-02 12:46] LABS: B-TYPE NATRIURETIC PEPTIDE 173 pg/mL (0-100)
[2019-05-02 13:01] LABS: ALANINE AMINOTRANSFERASE 42 U/L (12-78); ALBUMIN 4.3 g/dL (3.4-5.0); ALKALINE PHOSPHATASE 153 U/L (46-116); ASPARTATE AMINOTRANSFERASE 38 U/L (15-37); BILIRUBIN,TOTAL 1.3 mg/dL (0.1-1.0); CREATINE KINASE, TOTAL ONLY 369 U/L (26-192)
[2019-05-02] MEDS ORDERED: 0.9% SODIUM CHLORIDE 10 ML SYRINGE IVP PRN (13:45)
[2019-05-02] MEDS ORDERED: ACETAMINOPHEN 325 MG TABLET PO PRN ×2 (13:45→15:15)
[2019-05-02] MEDS ORDERED: ONDANSETRON HCL 4 MG/2 ML VIAL IVP PRN ×2 (13:45→15:15)
[2019-05-02] MEDS ORDERED: MORPHINE SULFATE 2 MG/ML SYRINGE IVP PRN (15:15)
[2019-05-02] MEDS ORDERED: ZOLPIDEM TARTRATE 5 MG TABLET PO PRN (15:15)
[2019-05-02] MEDS ORDERED: ALBUTEROL SULFATE 2.5 MG/0.5 ML NEB SOLUTION NEB PRN (15:15)
[2019-05-02] MEDS ORDERED: BISACODYL 10 MG RECTAL RECTAL SUPPOSITORY PR PRN (15:15)
[2019-05-02] MEDS ORDERED: MAGNESIUM HYDROXIDE SUSPENSION 30 ML UDCUP PO PRN (15:15)
[2019-05-02 15:39] LABS: INFLUENZA TYPE A NEGATIVE FOR TYPE A (NEGATIVE); INFLUENZA TYPE B NEGATIVE FOR TYPE B (NEGATIVE)
[2019-05-02] MEDS: HEPARIN SODIUM,PORCINE 5,000 UNITS/ML VIAL SQ SCH (16:09)
[2019-05-02] MEDS: NITROGLYCERIN 2% (1 GM=INCH) PACKET TP SCH (16:21)
[2019-05-02 20:13] VITALS: BP 125/78
[2019-05-02] MEDS: DOCUSATE SODIUM 100 MG CAPSULE PO SCH (21:21)
[2019-05-02] MEDS: FUROSEMIDE 40 MG TABLET PO SCH (21:22)
[2019-05-02] MEDS: GABAPENTIN 400 MG CAPSULE PO SCH (21:22)
[2019-05-03 00:19] VITALS: BP 120/79
[2019-05-03] MEDS: HEPARIN SODIUM,PORCINE 5,000 UNITS/ML VIAL SQ SCH ×4 (02:10→23:39)
[2019-05-03] MEDS: NITROGLYCERIN 2% (1 GM=INCH) PACKET TP SCH ×4 (02:11→23:39)
[2019-05-03 06:29] LABS: BASOPHILS % (AUTO) 0.6 % (0.0-2.0); EOSINOPHILS % (AUTO) 3.4 % (1.0-6.0); HEMATOCRIT 34.2 % (36-46); HEMOGLOBIN 11.7 g/dL (12.0-16.0); LYMPHOCYTES # (AUTO) 1.7 K/uL (1.0-4.8); LYMPHOCYTES % (AUTO) 32.1 % (22.0-44.0); MEAN CORPUSCULAR HGB CONC 34.2 G/dL (31.0-37.0); MEAN CORPUSCULAR VOLUME 97 fL (80-100); MONOCYTES # (AUTO) 0.7 K/uL (0.1-1.0); NEUTROPHILS # (AUTO) 2.7 K/uL (1.8-7.7); NEUTROPHILS % (AUTO) 50.9 % (40.0-70.0); PLATELET COUNT (AUTO) 157 K/uL (150-450); RED BLOOD CELL COUNT(AUTO) 3.55 MIL/uL (4.00-5.20); RED CELL DISTRIBUTION WIDTH 14.5 % (11.5-14.5)
[2019-05-03 06:54] LABS: ALANINE AMINOTRANSFERASE 30 U/L (12-78); ALBUMIN 3.4 g/dL (3.4-5.0); ALKALINE PHOSPHATASE 120 U/L (46-116); ANION GAP 7 mmol/L (8-16); ASPARTATE AMINOTRANSFERASE 35 U/L (15-37); BILIRUBIN,TOTAL 0.8 mg/dL (0.1-1.0); CALCIUM, TOTAL 8.5 mg/dL (8.8-10.5); CARBON DIOXIDE 29 mmol/L (22-29); CHLORIDE 104 mmol/L (98-107); CHOL/HDL RATIO 1.8 (3.9-5.7); CHOLESTEROL 120 mg/dL (131-200); CREATININE 1.01 mg/dL (0.60-1.30); GLOMERULAR FILTR. RATE CALC > 60 mL/min (>60); GLUCOSE,RANDOM 84 mg/dL (70-110); HDL CHOLESTEROL 65 mg/dL (40-60); LDL CHOL (CALC.) 45 mg/dL (0-130); POTASSIUM 3.8 mmol/L (3.5-5.1); SODIUM SERUM 140 mmol/L (136-145); TOTAL PROTEIN, SERUM 7.1 g/dL (6.4-8.2); TRIGLYCERIDES 52 mg/dL (15-150); UREA NITROGEN, BLOOD 20 mg/dL (7-18)
[2019-05-03 08:12] VITALS: BP 129/99
[2019-05-03] MEDS: CITALOPRAM HYDROBROMIDE 20 MG TABLET PO SCH (09:23)
[2019-05-03] MEDS: ASPIRIN 81 MG CHEWABLE TABLET PO SCH (09:24)
[2019-05-03] MEDS: DOCUSATE SODIUM 100 MG CAPSULE PO SCH ×2 (09:24→21:45)
[2019-05-03] MEDS: FUROSEMIDE 40 MG TABLET PO SCH ×2 (09:24→21:45)
[2019-05-03] MEDS: PANTOPRAZOLE SODIUM 40 MG DR TABLET PO SCH (09:24)
[2019-05-03] MEDS: METOPROLOL TARTRATE 25 MG TABLET PO SCH (09:24)
[2019-05-03] MEDS: GABAPENTIN 400 MG CAPSULE PO SCH ×2 (09:24→21:45)
[2019-05-03] MEDS: ATORVASTATIN CALCIUM 40 MG TABLET PO SCH (09:24)
[2019-05-03] MEDS: HYDROCODONE/ACETAMINOPHEN 5-325 MG TABLET PO PRN (09:26)
[2019-05-03 11:02] VITALS: BP 125/88
[2019-05-03 15:27] VITALS: BP 113/58
[2019-05-03 20:02] VITALS: BP 96/69
[2019-05-03 23:41] VITALS: BP 100/57
[2019-05-04 05:32] VITALS: BP 99/60
[2019-05-04 06:11] LABS: BASOPHILS % (AUTO) 0.5 % (0.0-2.0); EOSINOPHILS % (AUTO) 3.5 % (1.0-6.0); HEMATOCRIT 34.1 % (36-46); HEMOGLOBIN 11.4 g/dL (12.0-16.0); LYMPHOCYTES # (AUTO) 1.5 K/uL (1.0-4.8); LYMPHOCYTES % (AUTO) 35.9 % (22.0-44.0); MEAN CORPUSCULAR HEMOGLOBIN 32.7 pg (26.0-34.0); MEAN CORPUSCULAR HGB CONC 33.5 G/dL (31.0-37.0); MEAN CORPUSCULAR VOLUME 98 fL (80-100); MONOCYTES # (AUTO) 0.6 K/uL (0.1-1.0); MONOCYTES % (AUTO) 14.3 % (2.0-9.0); NEUTROPHILS # (AUTO) 1.9 K/uL (1.8-7.7); NEUTROPHILS % (AUTO) 45.8 % (40.0-70.0); PLATELET COUNT (AUTO) 139 K/uL (150-450); RED CELL DISTRIBUTION WIDTH 14.1 % (11.5-14.5)
[2019-05-04 06:43] LABS: ANION GAP 6 mmol/L (8-16); CALCIUM, TOTAL 8.6 mg/dL (8.8-10.5); CARBON DIOXIDE 28 mmol/L (22-29); CHLORIDE 106 mmol/L (98-107); CREATININE 0.77 mg/dL (0.60-1.30); GLOMERULAR FILTR. RATE CALC > 60 mL/min (>60); GLUCOSE,RANDOM 107 mg/dL (70-110); POTASSIUM 3.9 mmol/L (3.5-5.1); SODIUM SERUM 140 mmol/L (136-145); UREA NITROGEN, BLOOD 18 mg/dL (7-18)
[2019-05-04 07:33] VITALS: BP 110/78
[2019-05-04] MEDS: NITROGLYCERIN 2% (1 GM=INCH) PACKET TP SCH (08:00)
[2019-05-04] MEDS: HEPARIN SODIUM,PORCINE 5,000 UNITS/ML VIAL SQ SCH (08:00)
[2019-05-04] MEDS: ASPIRIN 81 MG CHEWABLE TABLET PO SCH (09:17)
[2019-05-04] MEDS: PANTOPRAZOLE SODIUM 40 MG DR TABLET PO SCH (09:18)
[2019-05-04] MEDS: DOCUSATE SODIUM 100 MG CAPSULE PO SCH (09:18)
[2019-05-04] MEDS: GABAPENTIN 400 MG CAPSULE PO SCH (09:18)
[2019-05-04] MEDS: FUROSEMIDE 40 MG TABLET PO SCH (09:18)
[2019-05-04] MEDS: HYDROCODONE/ACETAMINOPHEN 5-325 MG TABLET PO PRN (09:18)
[2019-05-04] MEDS: ATORVASTATIN CALCIUM 40 MG TABLET PO SCH (09:18)
[2019-05-04] MEDS: CITALOPRAM HYDROBROMIDE 20 MG TABLET PO SCH (09:18)
[2019-05-04] MEDS: METOPROLOL TARTRATE 25 MG TABLET PO SCH (09:18)
[2019-05-04 11:09] VITALS: BP 109/72
== END 2019-05-04 15:00 | disposition home or self-care (01) | DRG 198 ==
LOC: EMS 06:39 → 5S 14:36
PROVIDERS: ADMIT Internal Medicine; ATTEND Internal Medicine
DX: I24.8 Other forms of acute ischemic heart disease (principal); I11.0 Hypertensive heart disease with heart failure; I50.9 Heart failure, unspecified; J45.901 Unspecified asthma with (acute) exacerbation; E66.9 Obesity, unspecified; F19.10 Other psychoactive substance abuse, uncomplicated; R79.89 Other specified abnormal findings of blood chemistry; E78.5 Hyperlipidemia, unspecified; Z88.1 Allergy status to other antibiotic agents; Z68.34 Body mass index [BMI] 34.0-34.9, adult
CPT/HCPCS: 87804; 93005; 93306; 97116; 97161; 97530; G0480; J1200; J1630; J1644; J2060

== ENCOUNTER 2019-05-22 16:47 | Emergency (ER) | payer MEDICAID ==
[~2019-05-22] VITALS: Ht 167.6 cm; Wt 86.4 kg
[~2019-05-22 16:47] MED LIST changes: -CIPR500S5 PO
[2019-05-22] MEDS ORDERED: HYDROCODONE/ACETAMINOPHEN 5-325 MG TABLET PO ONE (23:45)
[2019-05-22] MEDS ORDERED: GABAPENTIN 400 MG CAPSULE PO ONE (23:45)
[2019-05-22] MEDS ORDERED: LORazepam 1 MG TABLET PO ONE (23:45)
[2019-05-23 02:00] VITALS: BP 124/65
== END 2019-05-23 07:21 | disposition home or self-care (01) ==
LOC: EMS 16:50
DX: M16.0 Bilateral primary osteoarthritis of hip (principal); I11.0 Hypertensive heart disease with heart failure; I50.9 Heart failure, unspecified; G89.29 Other chronic pain; J45.909 Unspecified asthma, uncomplicated; Z88.1 Allergy status to other antibiotic agents; Z79.899 Other long term (current) drug therapy
CPT/HCPCS: 73502; 73503

== ENCOUNTER 2019-11-08 06:37 | Emergency (ER) | payer MEDICAID ==
[~2019-11-08] VITALS: Ht 170.2 cm; Wt 100.9 kg
[~2019-11-08 06:37] MED LIST changes: -CITA-106 PO; +CITA-144 PO; +GABA-1201 PO; -GABA-533 PO
[2019-11-08] MEDS ORDERED: ACETAMINOPHEN 325 MG TABLET PO ONE (07:15)
[2019-11-08 07:34] LABS: BASOPHILS % (AUTO) 0.5 % (0.0-2.0); EOSINOPHILS % (AUTO) 2.4 % (1.0-6.0); HEMATOCRIT 38.9 % (36-46); HEMOGLOBIN 13.1 g/dL (12.0-16.0); LYMPHOCYTES # (AUTO) 1.6 K/uL (1.0-4.8); LYMPHOCYTES % (AUTO) 24.8 % (22.0-44.0); MEAN CORPUSCULAR HEMOGLOBIN 32.1 pg (26.0-34.0); MEAN CORPUSCULAR HGB CONC 33.6 G/dL (31.0-37.0); MEAN CORPUSCULAR VOLUME 96 fL (80-100); MONOCYTES # (AUTO) 0.6 K/uL (0.1-1.0); MONOCYTES % (AUTO) 9.5 % (2.0-9.0); NEUTROPHILS % (AUTO) 62.8 % (40.0-70.0); PLATELET COUNT (AUTO) 221 K/uL (150-450); RED BLOOD CELL COUNT(AUTO) 4.07 MIL/uL (4.00-5.20); RED CELL DISTRIBUTION WIDTH 14.4 % (11.5-14.5)
[2019-11-08 07:49] LABS: ANION GAP 16 mmol/L (8-16); CALCIUM, TOTAL 9.4 mg/dL (8.8-10.5); CARBON DIOXIDE 19 mmol/L (22-29); CHLORIDE 102 mmol/L (98-107); CREATININE 0.68 mg/dL (0.60-1.30); GLOMERULAR FILTR. RATE CALC > 60 mL/min (>60); GLUCOSE,RANDOM 75 mg/dL (70-110); POTASSIUM 3.7 mmol/L (3.5-5.1); SODIUM SERUM 137 mmol/L (136-145); UREA NITROGEN, BLOOD 19 mg/dL (7-18)
[2019-11-08 07:54] LABS: ALANINE AMINOTRANSFERASE 26 U/L (12-78); ALBUMIN 4.1 g/dL (3.4-5.0); ALKALINE PHOSPHATASE 277 U/L (46-116); ASPARTATE AMINOTRANSFERASE 34 U/L (15-37); BILIRUBIN,TOTAL 0.9 mg/dL (0.1-1.0); TOTAL PROTEIN, SERUM 9.4 g/dL (6.4-8.2)
[2019-11-08 08:04] LABS: B-TYPE NATRIURETIC PEPTIDE 30 pg/mL (0-100)
[2019-11-08 10:46] VITALS: BP 106/75
== END 2019-11-08 10:48 | disposition home or self-care (01) ==
LOC: EMS 06:37
DX: L03.115 Cellulitis of right lower limb (principal); L97.319 Non-pressure chronic ulcer of right ankle with unspecified severity; I50.9 Heart failure, unspecified; J45.909 Unspecified asthma, uncomplicated; F17.210 Nicotine dependence, cigarettes, uncomplicated; F14.90 Cocaine use, unspecified, uncomplicated; F15.90 Other stimulant use, unspecified, uncomplicated; Z88.0 Allergy status to penicillin; Z79.899 Other long term (current) drug therapy
CPT/HCPCS: 85379; 93970

== ENCOUNTER 2023-10-09 15:06 | Inpatient (IN) | payer OTHER, MEDICAID ==
[~2023-10-09] VITALS: Ht 165.1 cm; Wt 85.1 kg
[~2023-10-09 15:06] MED LIST changes: +ALBU18HF12 IH; -ALBU8HFA IH
[2023-10-09 15:31] LABS: GLUCOMETER DEV NAME(LOC) ER.7; GLUCOSE,POINT OF CARE 112 MG/DL (70-110)
[2023-10-09 16:35] LABS: BASOPHILS % (AUTO) 0.3 % (0.0-2.0); EOSINOPHILS % (AUTO) 0.3 % (1.0-6.0); HEMOGLOBIN 13.9 g/dL (12.0-16.0); LYMPHOCYTES # (AUTO) 1.2 K/uL (1.0-4.8); LYMPHOCYTES % (AUTO) 7.5 % (22.0-44.0); MEAN CORPUSCULAR HGB CONC 32.4 G/dL (31.0-37.0); MEAN CORPUSCULAR VOLUME 99 fL (80-100); MONOCYTES # (AUTO) 1.1 K/uL (0.1-1.0); MONOCYTES % (AUTO) 6.8 % (2.0-9.0); NEUTROPHILS # (AUTO) 13.2 K/uL (1.8-7.7); NEUTROPHILS % (AUTO) 85.1 % (40.0-70.0); PLATELET COUNT (AUTO) 228 K/uL (150-450); RED BLOOD CELL COUNT(AUTO) 4.35 MIL/uL (4.00-5.20); WHITE BLOOD COUNT (AUTO) 15.5 K/uL (4.5-11.0)
[2023-10-09 16:44] LABS: ANION GAP 11 mmol/L (8-16); CALCIUM, TOTAL 10.1 mg/dL (8.8-10.5); CARBON DIOXIDE 26 mmol/L (22-29); CHLORIDE 98 mmol/L (98-107); GLOMERULAR FILTR. RATE CALC 60 mL/min (>60); GLUCOSE,RANDOM 114 mg/dL (70-110); POTASSIUM 4.5 mmol/L (3.5-5.1); SODIUM SERUM 135 mmol/L (136-145); UREA NITROGEN, BLOOD 41 mg/dL (7-18)
[2023-10-09 16:49] LABS: ALCOHOL, BLOOD (SERUM) < 3 mg/dL (0-10)
[2023-10-09] MEDS ORDERED: CITA10TA99 PO (16:57)
[2023-10-09] MEDS ORDERED: FERR325T23 PO (16:57)
[2023-10-09] MEDS ORDERED: GABA-1181 PO (16:57)
[2023-10-09] MEDS ORDERED: CHOL500045 PO (16:57)
[2023-10-09] MEDS ORDERED: MELA5TAB40 PO (16:57)
[2023-10-09] MEDS ORDERED: ATOR10TA69 PO (16:57)
[2023-10-09] MEDS ORDERED: MULT1TAB67 PO (16:57)
[2023-10-09] MEDS ORDERED: APIX5TAB PO (16:57)
[2023-10-09] MEDS ORDERED: ASPI-1450 PO (16:57)
[2023-10-09] MEDS ORDERED: FURO40TA5 PO (16:57)
[2023-10-09] MEDS ORDERED: METO50 PO (16:57)
[2023-10-09] MEDS: HYDROCODONE/ACETAMINOPHEN 5-325 MG TABLET PO ONE (18:04)
[2023-10-09] MEDS: VANCOMYCIN 1GM/WATER(PEG/NADA) 200 ML IV ONE (18:04)
[2023-10-09] MEDS: SODIUM CHLORIDE 0.9% 1,000 ML IV ONE (18:04)
[2023-10-09 18:12] LABS: LACTIC ACID 3.6 mmol/L (0.4-2.0)
[2023-10-09] MEDS: DILTIAZEM HCL 5 MG/ML 5 ML VIAL IVP ONE (19:16)
[2023-10-09 19:18] LABS: TROPONIN I-HIGH SENSITIVITY 35 ng/L (<51)
[2023-10-09] MEDS: DILTIAZEM HCL 125 MG in DEXTROSE 5%-WATER 100 ML IV PRN (19:18)
[2023-10-09] MEDS: SODIUM CHLORIDE 0.9% 2,100 ML IV ONE (20:12)
[2023-10-09] MEDS ORDERED: BISACODYL 10 MG RECTAL RECTAL SUPPOSITORY PR PRN (20:45)
[2023-10-09] MEDS ORDERED: IPRATROPIUM BROMIDE 0.5 MG/2.5 ML NEB SOLUTION NEB PRN (20:45)
[2023-10-09] MEDS ORDERED: ACETAMINOPHEN 325 MG TABLET PO PRN (20:45)
[2023-10-09] MEDS ORDERED: MAGNESIUM HYDROXIDE SUSPENSION 30 ML UDCUP PO PRN (20:45)
[2023-10-09] MEDS ORDERED: ZOLPIDEM TARTRATE 5 MG TABLET PO PRN (20:45)
[2023-10-09] MEDS ORDERED: HYDROCODONE/ACETAMINOPHEN 5-325 MG TABLET PO PRN (20:45)
[2023-10-09] MEDS ORDERED: MORPHINE SULFATE 2 MG/ML SYRINGE IVP PRN (20:45)
[2023-10-09] MEDS ORDERED: ALBUTEROL SULFATE 2.5 MG/0.5 ML NEB SOLUTION NEB PRN (20:45)
[2023-10-09] MEDS: GABAPENTIN 300 MG CAPSULE PO SCH (21:00)
[2023-10-09] MEDS: METOPROLOL TARTRATE 50 MG TABLET PO SCH (21:00)
[2023-10-09] MEDS: MELATONIN 5 MG TABLET PO SCH (21:00)
[2023-10-09] MEDS: APIXABAN 5 MG TABLET PO SCH (21:00)
[2023-10-09 21:18] LABS: PH,URINE DRUG SCREEN 5.5 (5.0-8.0)
[2023-10-09 21:20] LABS: APPEARANCE,URINE HAZY (CLEAR); BILIRUBIN,URINE NEGATIVE (NEGATIVE); COLOR,URINE LIGHT YELLOW (YELLOW); GLUCOSE, URINE (UA) NEGATIVE (NEGATIVE); KETONES,URINE NEGATIVE (NEGATIVE); LEUKOCYTE ESTERASE ,URINE LARGE (NEGATIVE); NITRATE,URINE NEGATIVE (NEGATIVE); OCCULT BLOOD,URINE NEGATIVE (NEGATIVE); PH,URINE 5.5 (5.0-8.0); PROTEIN,URINE TRACE mg/dL (NEGATIVE); SPECIFIC GRAVITIY, URINE 1.022 (1.003-1.030); UROBILINOGEN,URINE <=1.0 mg/dL (<=1.0)
[2023-10-09 21:22] LABS: ALCOHOL, URINE DRUG SCREEN NEGATIVE (NEGATIVE); AMPHET/METH SCREEN,URINE NEGATIVE (NEGATIVE); BARBITURATE SCREEN, URINE NEGATIVE (NEGATIVE); BENZODIAZEPINES SCREEN,URINE NEGATIVE (NEGATIVE); CANNABINOID SCREEN,URINE NEGATIVE (NEGATIVE); COCAINE SCREEN,URINE POSITIVE (NEGATIVE); METHADONE SCREEN, URINE NEGATIVE (NEGATIVE); OPIATE SCREEN,URINE POSITIVE (NEGATIVE); PHENCYCLIDINE SCREEN,URINE POSITIVE (NEGATIVE)
[2023-10-09 22:07] VITALS: BP 146/81; PULSE 117; RESP 20; TEMP 98
[2023-10-09 22:08] LABS: BACTERIA,URINE Moderate /HPF (None Seen); RBC,URINE None Seen /HPF (0-2); SQUAMOUS EPITHELIAL CELL,UR Few /LPF (None Seen); WBC,URINE 26-50 /HPF (0-5)
[2023-10-10 06:02] VITALS: BP 137/78; PULSE 102; RESP 19; TEMP 99.1
[2023-10-10 06:13] LABS: BASOPHILS % (AUTO) 0.4 % (0.0-2.0); EOSINOPHILS % (AUTO) 0.8 % (1.0-6.0); HEMATOCRIT 37.6 % (36-46); HEMOGLOBIN 12.5 g/dL (12.0-16.0); LYMPHOCYTES # (AUTO) 0.9 K/uL (1.0-4.8); LYMPHOCYTES % (AUTO) 9.3 % (22.0-44.0); MEAN CORPUSCULAR HEMOGLOBIN 32.7 pg (26.0-34.0); MEAN CORPUSCULAR HGB CONC 33.2 G/dL (31.0-37.0); MEAN CORPUSCULAR VOLUME 99 fL (80-100); MONOCYTES # (AUTO) 0.6 K/uL (0.1-1.0); MONOCYTES % (AUTO) 6.2 % (2.0-9.0); NEUTROPHILS # (AUTO) 7.9 K/uL (1.8-7.7); NEUTROPHILS % (AUTO) 83.3 % (40.0-70.0); PLATELET COUNT (AUTO) 182 K/uL (150-450); RED BLOOD CELL COUNT(AUTO) 3.81 MIL/uL (4.00-5.20); RED CELL DISTRIBUTION WIDTH 14.2 % (11.5-14.5); WHITE BLOOD COUNT (AUTO) 9.5 K/uL (4.5-11.0)
[2023-10-10 06:16] LABS: ANION GAP 7 mmol/L (8-16); CALCIUM, TOTAL 9.4 mg/dL (8.8-10.5); CARBON DIOXIDE 26 mmol/L (22-29); CHLORIDE 103 mmol/L (98-107); GLOMERULAR FILTR. RATE CALC > 60 mL/min (>60); GLUCOSE,RANDOM 91 mg/dL (70-110); SODIUM SERUM 136 mmol/L (136-145); UREA NITROGEN, BLOOD 32 mg/dL (7-18)
[2023-10-10] MEDS: MULTIVITAMINS, THERAPEUTIC TABLET PO SCH (07:56)
[2023-10-10] MEDS: FUROSEMIDE 40 MG TABLET PO SCH (07:57)
[2023-10-10] MEDS: ATORVASTATIN CALCIUM 10 MG TABLET PO SCH (07:57)
[2023-10-10] MEDS: CITALOPRAM HYDROBROMIDE 10 MG TABLET PO SCH (07:58)
[2023-10-10] MEDS: PANTOPRAZOLE SODIUM 40 MG DR TABLET PO SCH (07:58)
[2023-10-10] MEDS: CHOLECALCIFEROL (VIT D3) 5,000 [125 MCG] UNITS CAPSULE PO SCH (07:58)
[2023-10-10] MEDS: ASPIRIN 81 MG CHEWABLE TABLET PO SCH (07:59)
[2023-10-10] MEDS: FERROUS SULFATE 325 MG EC TABLET PO SCH (07:59)
[2023-10-10 08:00] VITALS: BP 88/59; PULSE 94; RESP 18; TEMP 97.7
[2023-10-10] MEDS ORDERED: SODIUM CHLORIDE 0.9% 500 ML IV ONE (08:27)
[2023-10-10] MEDS: VANCOMYCIN 1.5 GM/WATER(PEG) 300 ML IV SCH (09:03)
[2023-10-10 12:00] VITALS: BP 99/62; PULSE 93; RESP 17; TEMP 98
[2023-10-10 16:01] VITALS: BP 100/70; PULSE 88; RESP 16; TEMP 97.7
[2023-10-10 20:17] VITALS: BP 94/57; PULSE 113; RESP 18; TEMP 98.2
[2023-10-10] MEDS: METOPROLOL TARTRATE 25 MG TABLET PO SCH (21:00)
[2023-10-10] MEDS: SULFAMETHOX/TRIMETH DS 800-160 MG/TABLET PO SCH (22:06)
[2023-10-10 22:12] VITALS: BP 84/69; PULSE 104; RESP 18; TEMP 98.6
[2023-10-11] VITALS (7 sets, daily range): BP systolic 88–112; BP diastolic 45–84; PULSE 62–105; RESP 18–19; TEMP 97.6–98.9
[2023-10-11 06:12] LABS: BASOPHILS % (AUTO) 0.8 % (0.0-2.0); HEMATOCRIT 35.6 % (36-46); HEMOGLOBIN 11.7 g/dL (12.0-16.0); LYMPHOCYTES % (AUTO) 19.5 % (22.0-44.0); MEAN CORPUSCULAR HEMOGLOBIN 32.5 pg (26.0-34.0); MEAN CORPUSCULAR HGB CONC 32.9 G/dL (31.0-37.0); MEAN CORPUSCULAR VOLUME 99 fL (80-100); MONOCYTES # (AUTO) 0.6 K/uL (0.1-1.0); MONOCYTES % (AUTO) 10.9 % (2.0-9.0); NEUTROPHILS # (AUTO) 3.5 K/uL (1.8-7.7); NEUTROPHILS % (AUTO) 66.8 % (40.0-70.0); PLATELET COUNT (AUTO) 167 K/uL (150-450); RED BLOOD CELL COUNT(AUTO) 3.61 MIL/uL (4.00-5.20); RED CELL DISTRIBUTION WIDTH 14.4 % (11.5-14.5); WHITE BLOOD COUNT (AUTO) 5.3 K/uL (4.5-11.0)
[2023-10-11 06:25] LABS: ANION GAP 8 mmol/L (8-16); CALCIUM, TOTAL 9.3 mg/dL (8.8-10.5); CARBON DIOXIDE 25 mmol/L (22-29); CHLORIDE 102 mmol/L (98-107); CREATININE 0.85 mg/dL (0.60-1.30); GLOMERULAR FILTR. RATE CALC > 60 mL/min (>60); GLUCOSE,RANDOM 96 mg/dL (70-110); POTASSIUM 3.8 mmol/L (3.5-5.1); SODIUM SERUM 135 mmol/L (136-145); UREA NITROGEN, BLOOD 24 mg/dL (7-18)
[2023-10-12 05:19] VITALS: BP 109/64; PULSE 98; RESP 20; TEMP 97.7
[2023-10-12 06:23] LABS: ANION GAP 8 mmol/L (8-16); CALCIUM, TOTAL 9.3 mg/dL (8.8-10.5); CARBON DIOXIDE 25 mmol/L (22-29); CHLORIDE 104 mmol/L (98-107); CREATININE 0.95 mg/dL (0.60-1.30); GLOMERULAR FILTR. RATE CALC > 60 mL/min (>60); GLUCOSE,RANDOM 109 mg/dL (70-110); POTASSIUM 3.7 mmol/L (3.5-5.1); SODIUM SERUM 137 mmol/L (136-145); UREA NITROGEN, BLOOD 21 mg/dL (7-18); VANCOMYCIN,RANDOM 13.8 mcg/mL (25.0-50.0)
[2023-10-12 07:39] VITALS: BP 106/77; PULSE 109; RESP 18; TEMP 97.8
[2023-10-12 11:40] VITALS: BP 109/77; PULSE 112; RESP 16; TEMP 98
[2023-10-12 15:52] VITALS: BP 99/62; PULSE 94; RESP 16; TEMP 98
[2023-10-12 16:00] VITALS: BP 100/78
[2023-10-12 19:49] VITALS: BP 93/68; PULSE 101; RESP 18; TEMP 98.1
[2023-10-13] VITALS (9 sets, daily range): BP systolic 97–134; BP diastolic 56–85; PULSE 52–106; RESP 18–20; TEMP 97.2–98.1
[2023-10-13 07:26] LABS: ANION GAP 9 mmol/L (8-16); CALCIUM, TOTAL 9.4 mg/dL (8.8-10.5); CARBON DIOXIDE 25 mmol/L (22-29); CHLORIDE 104 mmol/L (98-107); CREATININE 0.96 mg/dL (0.60-1.30); GLOMERULAR FILTR. RATE CALC > 60 mL/min (>60); GLUCOSE,RANDOM 85 mg/dL (70-110); POTASSIUM 4.1 mmol/L (3.5-5.1); SODIUM SERUM 138 mmol/L (136-145); UREA NITROGEN, BLOOD 20 mg/dL (7-18)
[2023-10-14 04:07] VITALS: BP 99/59; PULSE 52; RESP 18; TEMP 97.4
[2023-10-14 06:17] LABS: ANION GAP 8 mmol/L (8-16); CARBON DIOXIDE 25 mmol/L (22-29); CHLORIDE 104 mmol/L (98-107); CREATININE 0.93 mg/dL (0.60-1.30); GLOMERULAR FILTR. RATE CALC > 60 mL/min (>60); GLUCOSE,RANDOM 111 mg/dL (70-110); POTASSIUM 3.9 mmol/L (3.5-5.1); SODIUM SERUM 137 mmol/L (136-145); UREA NITROGEN, BLOOD 22 mg/dL (7-18)
[2023-10-14 08:08] VITALS: BP 98/58; PULSE 94; RESP 20; TEMP 98.2
[2023-10-14] MEDS ORDERED: SODIUM CHLORIDE 0.9% 500 ML IV ONE (08:37)
[2023-10-14] MEDS ORDERED: METO25 PO (13:17)
[2023-10-14] MEDS ORDERED: LEVO750T68 PO (13:17)
[2023-10-14 15:36] VITALS: BP 102/68; PULSE 90; RESP 20; TEMP 98.8
== END 2023-10-14 16:31 | disposition home or self-care (01) | DRG 602 ==
LOC: EMS 15:06 → 5N 21:09 → 6S 10-13 11:30
PROVIDERS: ADMIT Hospitalist; ATTEND Hospitalist
DX: L03.115 Cellulitis of right lower limb (principal); G92.8 Other toxic encephalopathy; N39.0 Urinary tract infection, site not specified; D68.59 Other primary thrombophilia; E78.5 Hyperlipidemia, unspecified; F15.10 Other stimulant abuse, uncomplicated; I48.91 Unspecified atrial fibrillation; T50.905A Adverse effect of unspecified drugs, medicaments and biological substances, initial encounter; D64.9 Anemia, unspecified; J45.909 Unspecified asthma, uncomplicated; I95.9 Hypotension, unspecified; F19.10 Other psychoactive substance abuse, uncomplicated; I50.9 Heart failure, unspecified; Z88.0 Allergy status to penicillin; Z87.891 Personal history of nicotine dependence; Y92.89 Other specified places as the place of occurrence of the external cause
CPT/HCPCS: 80048; 80202; 80307; 81001; 82962; 83605; 83880; 84145; 84484; 85025; 87040; 87086; 87186; 93005; 97116; 97162; 97530; 99285; G0480; J3490; J7030; J7040; J7060; Q9967

== ENCOUNTER 2023-12-09 04:34 | Inpatient (IN) | payer OTHER, MEDICAID ==
[~2023-12-09] VITALS: Ht 170.2 cm; Wt 98.1 kg
[~2023-12-09 04:34] MED LIST changes: +APIX5TAB PO; +ASPI-1450 PO; +ATOR10TA69 PO; -ATOR40TA28 PO; +CHOL500045 PO; -CITA-144 PO; +CITA10TA99 PO; +FERR325T23 PO; -FURO40 PO; +FURO40TA5 PO; +GABA-1181 PO; -GABA-1201 PO; +LEVO750T68 PO; +MELA5TAB40 PO; +MULT1TAB67 PO
[2023-12-09 06:02] LABS: BASOPHILS % (AUTO) 0.5 % (0.0-2.0); EOSINOPHILS % (AUTO) 2.8 % (1.0-6.0); HEMOGLOBIN 10.4 g/dL (12.0-16.0); LYMPHOCYTES # (AUTO) 1.1 K/uL (1.0-4.8); LYMPHOCYTES % (AUTO) 19.8 % (22.0-44.0); MEAN CORPUSCULAR HEMOGLOBIN 32.7 pg (26.0-34.0); MEAN CORPUSCULAR HGB CONC 32.4 G/dL (31.0-37.0); MEAN CORPUSCULAR VOLUME 101 fL (80-100); MONOCYTES # (AUTO) 0.9 K/uL (0.1-1.0); MONOCYTES % (AUTO) 16.1 % (2.0-9.0); NEUTROPHILS # (AUTO) 3.3 K/uL (1.8-7.7); NEUTROPHILS % (AUTO) 60.8 % (40.0-70.0); PLATELET COUNT (AUTO) 252 K/uL (150-450); RED BLOOD CELL COUNT(AUTO) 3.17 MIL/uL (4.00-5.20); RED CELL DISTRIBUTION WIDTH 16.4 % (11.5-14.5); WHITE BLOOD COUNT (AUTO) 5.4 K/uL (4.5-11.0)
[2023-12-09 06:10] LABS: ANION GAP 9 mmol/L (8-16); CARBON DIOXIDE 27 mmol/L (22-29); CHLORIDE 102 mmol/L (98-107); CREATININE 0.96 mg/dL (0.60-1.30); GLOMERULAR FILTR. RATE CALC > 60 mL/min (>60); GLUCOSE,RANDOM 79 mg/dL (70-110); POTASSIUM 3.6 mmol/L (3.5-5.1); SODIUM SERUM 138 mmol/L (136-145); UREA NITROGEN, BLOOD 21 mg/dL (7-18)
[2023-12-09 06:19] LABS: TROPONIN I-HIGH SENSITIVITY 20 ng/L (<51)
[2023-12-09 06:20] LABS: ALCOHOL, BLOOD (SERUM) < 3 mg/dL (0-10)
[2023-12-09] MEDS: DOXYCYCLINE HYCLATE 100 MG in DEXTROSE 5%-WATER 100 ML IV ONE (06:33)
[2023-12-09 06:53] LABS: B-TYPE NATRIURETIC PEPTIDE 557 pg/mL (0-100)
[2023-12-09 07:24] LABS: RBC MORPHOLOGY COMMENT ABNORMAL RBC MORPH
[2023-12-09] MEDS ORDERED: BISACODYL 10 MG RECTAL RECTAL SUPPOSITORY PR PRN (14:00)
[2023-12-09] MEDS ORDERED: MAGNESIUM HYDROXIDE SUSPENSION 30 ML UDCUP PO PRN (14:00)
[2023-12-09] MEDS ORDERED: ZOLPIDEM TARTRATE 5 MG TABLET PO PRN (14:00)
[2023-12-09] MEDS ORDERED: HYDROCODONE/ACETAMINOPHEN 5-325 MG TABLET PO PRN (14:00)
[2023-12-09] MEDS ORDERED: ACETAMINOPHEN 325 MG TABLET PO PRN (14:00)
[2023-12-09] MEDS ORDERED: MORPHINE SULFATE 2 MG/ML SYRINGE IVP PRN (14:00)
[2023-12-09] MEDS ORDERED: ONDANSETRON HCL 4 MG/2 ML VIAL IVP PRN (14:00)
[2023-12-09 14:02] VITALS: BP 130/61; PULSE 101; RESP 18; TEMP 98
[2023-12-09] MEDS ORDERED: SODIUM CHLORIDE 0.9% 250 ML IV ONE (15:14)
[2023-12-09] MEDS: HEPARIN SODIUM,PORCINE 5,000 UNITS/ML VIAL SQ SCH (15:24)
[2023-12-09] MEDS: GABAPENTIN 300 MG CAPSULE PO SCH (15:24)
[2023-12-09] MEDS: VANCOMYCIN 1.75GM/WATER(PEG) 350 ML IV ONE (15:24)
[2023-12-09] MEDS: FERROUS SULFATE 325 MG EC TABLET PO SCH (17:41)
[2023-12-09 20:03] VITALS: BP 123/70; PULSE 109; RESP 19; TEMP 97.8
[2023-12-09] MEDS: APIXABAN 5 MG TABLET PO SCH (20:36)
[2023-12-09] MEDS: METOPROLOL TARTRATE 25 MG TABLET PO SCH (20:36)
[2023-12-09] MEDS: DOCUSATE SODIUM 100 MG CAPSULE PO SCH (20:36)
[2023-12-09] MEDS: MELATONIN 5 MG TABLET PO SCH (20:50)
[2023-12-10] VITALS (7 sets, daily range): BP systolic 98–120; BP diastolic 56–75; PULSE 61–104; RESP 18; TEMP 97.5–98.2
[2023-12-10] MEDS: BENZONATATE 100 MG CAPSULE PO PRN (00:41)
[2023-12-10 06:53] LABS: BASOPHILS % (AUTO) 0.8 % (0.0-2.0); EOSINOPHILS % (AUTO) 3.4 % (1.0-6.0); HEMATOCRIT 32.3 % (36-46); HEMOGLOBIN 10.3 g/dL (12.0-16.0); LYMPHOCYTES # (AUTO) 0.9 K/uL (1.0-4.8); MEAN CORPUSCULAR HEMOGLOBIN 32.7 pg (26.0-34.0); MEAN CORPUSCULAR HGB CONC 31.8 G/dL (31.0-37.0); MEAN CORPUSCULAR VOLUME 103 fL (80-100); MONOCYTES # (AUTO) 0.5 K/uL (0.1-1.0); MONOCYTES % (AUTO) 11.2 % (2.0-9.0); NEUTROPHILS # (AUTO) 2.7 K/uL (1.8-7.7); NEUTROPHILS % (AUTO) 62.6 % (40.0-70.0); PLATELET COUNT (AUTO) 236 K/uL (150-450); RED BLOOD CELL COUNT(AUTO) 3.14 MIL/uL (4.00-5.20); RED CELL DISTRIBUTION WIDTH 16.8 % (11.5-14.5); WHITE BLOOD COUNT (AUTO) 4.3 K/uL (4.5-11.0)
[2023-12-10 07:04] LABS: ANION GAP 7 mmol/L (8-16); CALCIUM, TOTAL 8.9 mg/dL (8.8-10.5); CARBON DIOXIDE 28 mmol/L (22-29); CHLORIDE 105 mmol/L (98-107); CREATININE 1.02 mg/dL (0.60-1.30); GLOMERULAR FILTR. RATE CALC > 60 mL/min (>60); GLUCOSE,RANDOM 77 mg/dL (70-110); POTASSIUM 3.7 mmol/L (3.5-5.1); SODIUM SERUM 140 mmol/L (136-145); UREA NITROGEN, BLOOD 18 mg/dL (7-18)
[2023-12-10] MEDS: ATORVASTATIN CALCIUM 10 MG TABLET PO SCH (08:15)
[2023-12-10] MEDS: VANCOMYCIN 1GM/WATER(PEG/NADA) 200 ML IV SCH (08:15)
[2023-12-10] MEDS: FUROSEMIDE 40 MG TABLET PO SCH (08:16)
[2023-12-10] MEDS: CITALOPRAM HYDROBROMIDE 10 MG TABLET PO SCH (08:16)
[2023-12-10] MEDS: ASPIRIN 81 MG CHEWABLE TABLET PO SCH (08:16)
[2023-12-10] MEDS: MULTIVITAMINS, THERAPEUTIC TABLET PO SCH (08:16)
[2023-12-10] MEDS: PANTOPRAZOLE SODIUM 40 MG DR TABLET PO SCH (08:16)
[2023-12-10 13:05] LABS: ALCOHOL, URINE DRUG SCREEN NEGATIVE (NEGATIVE); AMPHET/METH SCREEN,URINE NEGATIVE (NEGATIVE); BARBITURATE SCREEN, URINE NEGATIVE (NEGATIVE); BENZODIAZEPINES SCREEN,URINE NEGATIVE (NEGATIVE); CANNABINOID SCREEN,URINE NEGATIVE (NEGATIVE); COCAINE SCREEN,URINE POSITIVE (NEGATIVE); METHADONE SCREEN, URINE NEGATIVE (NEGATIVE); OPIATE SCREEN,URINE NEGATIVE (NEGATIVE); PHENCYCLIDINE SCREEN,URINE NEGATIVE (NEGATIVE)
[2023-12-10] MEDS ORDERED: SODIUM CHLORIDE 0.9% 500 ML IV ONE (21:28)
[2023-12-11 05:56] VITALS: BP 103/66; PULSE 65; RESP 19; TEMP 97.8
[2023-12-11 06:54] LABS: BASOPHILS % (AUTO) 0.5 % (0.0-2.0); EOSINOPHILS % (AUTO) 4.3 % (1.0-6.0); HEMATOCRIT 29.6 % (36-46); HEMOGLOBIN 9.4 g/dL (12.0-16.0); LYMPHOCYTES # (AUTO) 0.9 K/uL (1.0-4.8); LYMPHOCYTES % (AUTO) 22.1 % (22.0-44.0); MEAN CORPUSCULAR HEMOGLOBIN 32.5 pg (26.0-34.0); MEAN CORPUSCULAR HGB CONC 31.9 G/dL (31.0-37.0); MEAN CORPUSCULAR VOLUME 102 fL (80-100); MONOCYTES # (AUTO) 0.4 K/uL (0.1-1.0); MONOCYTES % (AUTO) 11.4 % (2.0-9.0); NEUTROPHILS # (AUTO) 2.4 K/uL (1.8-7.7); NEUTROPHILS % (AUTO) 61.7 % (40.0-70.0); PLATELET COUNT (AUTO) 225 K/uL (150-450); RED CELL DISTRIBUTION WIDTH 16.6 % (11.5-14.5); WHITE BLOOD COUNT (AUTO) 3.9 K/uL (4.5-11.0)
[2023-12-11 07:13] LABS: RBC MORPHOLOGY COMMENT ABNORMAL RBC MORPH
[2023-12-11 07:26] VITALS: BP_SYST 83; BP_SYST 96; BP_DIAS 55; BP_DIAS 64; PULSE 61; RESP 18; TEMP 97.6
[2023-12-11 07:51] LABS: ANION GAP 9 mmol/L (8-16); CALCIUM, TOTAL 8.6 mg/dL (8.8-10.5); CARBON DIOXIDE 25 mmol/L (22-29); CHLORIDE 105 mmol/L (98-107); CREATININE 0.97 mg/dL (0.60-1.30); GLOMERULAR FILTR. RATE CALC > 60 mL/min (>60); GLUCOSE,RANDOM 93 mg/dL (70-110); POTASSIUM 3.8 mmol/L (3.5-5.1); SODIUM SERUM 139 mmol/L (136-145); UREA NITROGEN, BLOOD 18 mg/dL (7-18); VANCOMYCIN,RANDOM 21.2 mcg/mL (25.0-50.0)
[2023-12-11 11:28] VITALS: BP 117/77; PULSE 84; RESP 16; TEMP 97.7
[2023-12-11 15:43] VITALS: BP 105/60; PULSE 89; RESP 18; TEMP 97.9
[2023-12-11 19:08] VITALS: BP 104/70; PULSE 82; RESP 18; TEMP 98.2
[2023-12-11] MEDS: VANCOMYCIN 750 MG/WATER(PEG) 150 ML IV SCH (20:35)
[2023-12-11 23:11] VITALS: BP 99/64; PULSE 93; RESP 18; TEMP 97.3
[2023-12-12 03:03] VITALS: BP 108/68; PULSE 91; RESP 18; TEMP 97.9
[2023-12-12 07:48] VITALS: BP 108/78; PULSE 93; RESP 18; TEMP 97.5
[2023-12-12 08:01] LABS: BASOPHILS % (AUTO) 0.8 % (0.0-2.0); EOSINOPHILS % (AUTO) 3.7 % (1.0-6.0); HEMATOCRIT 31.5 % (36-46); HEMOGLOBIN 10.1 g/dL (12.0-16.0); LYMPHOCYTES # (AUTO) 0.9 K/uL (1.0-4.8); LYMPHOCYTES % (AUTO) 22.6 % (22.0-44.0); MEAN CORPUSCULAR HEMOGLOBIN 32.9 pg (26.0-34.0); MEAN CORPUSCULAR HGB CONC 32.2 G/dL (31.0-37.0); MEAN CORPUSCULAR VOLUME 102 fL (80-100); MONOCYTES # (AUTO) 0.3 K/uL (0.1-1.0); MONOCYTES % (AUTO) 8.2 % (2.0-9.0); NEUTROPHILS # (AUTO) 2.6 K/uL (1.8-7.7); NEUTROPHILS % (AUTO) 64.7 % (40.0-70.0); PLATELET COUNT (AUTO) 209 K/uL (150-450); RED BLOOD CELL COUNT(AUTO) 3.08 MIL/uL (4.00-5.20); RED CELL DISTRIBUTION WIDTH 17.8 % (11.5-14.5)
[2023-12-12 08:05] LABS: ANION GAP 10 mmol/L (8-16); CALCIUM, TOTAL 8.8 mg/dL (8.8-10.5); CARBON DIOXIDE 25 mmol/L (22-29); CHLORIDE 104 mmol/L (98-107); CREATININE 0.97 mg/dL (0.60-1.30); GLOMERULAR FILTR. RATE CALC > 60 mL/min (>60); GLUCOSE,RANDOM 75 mg/dL (70-110); POTASSIUM 3.9 mmol/L (3.5-5.1); SODIUM SERUM 139 mmol/L (136-145); UREA NITROGEN, BLOOD 19 mg/dL (7-18)
[2023-12-12 09:17] LABS: RBC MORPHOLOGY COMMENT ABNORMAL RBC MORPH
[2023-12-12] MEDS: CITALOPRAM HYDROBROMIDE 20 MG TABLET PO SCH (12:20)
[2023-12-12] MEDS ORDERED: APIX5TAB PO (12:38)
[2023-12-12] MEDS ORDERED: ASPI-1450 PO (12:38)
[2023-12-12] MEDS ORDERED: METO25 PO (12:39)
[2023-12-12] MEDS ORDERED: FURO40 PO (12:39)
[2023-12-12] MEDS ORDERED: CITA-144 PO (12:39)
[2023-12-12] MEDS ORDERED: CITA10TA99 PO (12:39)
[2023-12-12] MEDS ORDERED: GABA-1181 PO (12:39)
[2023-12-12] MEDS ORDERED: LEVO-72 PO (12:39)
[2023-12-12] MEDS ORDERED: ATOR10TA69 PO (12:39)
== END 2023-12-12 15:49 | disposition home or self-care (01) | DRG 602 ==
LOC: EMS 04:34 → EDH 09:51 → 5S 13:40
PROVIDERS: ADMIT Internal Medicine; ATTEND Internal Medicine
DX: L03.115 Cellulitis of right lower limb (principal); G92.8 Other toxic encephalopathy; I48.20 Chronic atrial fibrillation, unspecified; R65.10 Systemic inflammatory response syndrome (SIRS) of non-infectious origin without acute organ dysfunction; L03.116 Cellulitis of left lower limb; I50.9 Heart failure, unspecified; I87.8 Other specified disorders of veins; F17.210 Nicotine dependence, cigarettes, uncomplicated; G62.9 Polyneuropathy, unspecified; F14.90 Cocaine use, unspecified, uncomplicated; E78.5 Hyperlipidemia, unspecified; J44.9 Chronic obstructive pulmonary disease, unspecified; E66.01 Morbid (severe) obesity due to excess calories; Z91.199 Patient's noncompliance with other medical treatment and regimen due to unspecified reason; Z88.1 Allergy status to other antibiotic agents; Z79.82 Long term (current) use of aspirin; Z79.899 Other long term (current) drug therapy; Z68.33 Body mass index [BMI] 33.0-33.9, adult
CPT/HCPCS: 71045; 80048; 80202; 80307; 83036; 83880; 84484; 85025; 87081; 93005; 93306; 97116; 97162; 99285; G0480; J1644; J3490; J7040; J7050; J7060; 36415-L1; 36415-TC

== ENCOUNTER 2024-10-23 22:17 | Inpatient (IN) | payer OTHER, MEDICAID ==
[~2024-10-23] VITALS: Ht 172.7 cm; Wt 90.9 kg
[~2024-10-23 22:17] MED LIST changes: +CITA-144 PO; -FURO40TA5 PO; +FURO40TA6 PO; +LEVO-72 PO; -LEVO750T68 PO
[2024-10-23 23:00] LABS: BASOPHILS % (AUTO) 0.4 % (0.0-2.0); EOSINOPHILS % (AUTO) 0.3 % (1.0-6.0); HEMATOCRIT 41.6 % (36-46); LYMPHOCYTES # (AUTO) 1.1 K/uL (1.0-4.8); LYMPHOCYTES % (AUTO) 10.4 % (22.0-44.0); MEAN CORPUSCULAR HEMOGLOBIN 33.8 pg (26.0-34.0); MEAN CORPUSCULAR HGB CONC 33.6 G/dL (31.0-37.0); MEAN CORPUSCULAR VOLUME 101 fL (80-100); MONOCYTES # (AUTO) 0.7 K/uL (0.1-1.0); MONOCYTES % (AUTO) 7.2 % (2.0-9.0); NEUTROPHILS # (AUTO) 8.4 K/uL (1.8-7.7); NEUTROPHILS % (AUTO) 81.7 % (40.0-70.0); RED BLOOD CELL COUNT(AUTO) 4.14 MIL/uL (4.00-5.20); RED CELL DISTRIBUTION WIDTH 12.9 % (11.5-14.5); WHITE BLOOD COUNT (AUTO) 10.3 K/uL (4.5-11.0)
[2024-10-23 23:08] LABS: ANION GAP 13 mmol/L (8-16); CALCIUM, TOTAL 10.1 mg/dL (8.8-10.5); CARBON DIOXIDE 23 mmol/L (22-29); CHLORIDE 98 mmol/L (98-107); CREATININE 1.22 mg/dL (0.60-1.30); GLOMERULAR FILTR. RATE CALC 53 mL/min (>60); GLUCOSE,RANDOM 83 mg/dL (70-110); SODIUM SERUM 134 mmol/L (136-145); UREA NITROGEN, BLOOD 42 mg/dL (7-18)
[2024-10-23 23:20] LABS: TROPONIN I-HIGH SENSITIVITY 59 ng/L (<51)
[2024-10-23 23:21] LABS: PLATELET COUNT (AUTO) 152 K/uL (150-450)
[2024-10-23 23:24] LABS: ALBUMIN 4.1 g/dL (3.4-5.0); BILIRUBIN,DIRECT 0.6 mg/dL (0.00-0.20); BILIRUBIN,TOTAL 2.1 mg/dL (0.1-1.0); MAGNESIUM 2.2 mg/dL (1.80-2.40); TOTAL PROTEIN, SERUM 8.6 g/dL (6.4-8.2)
[2024-10-24 00:20] LABS: APPEARANCE,URINE CLEAR (CLEAR); BILIRUBIN,URINE NEGATIVE (NEGATIVE); COLOR,URINE YELLOW (YELLOW); GLUCOSE, URINE (UA) NEGATIVE (NEGATIVE); LEUKOCYTE ESTERASE ,URINE NEGATIVE (NEGATIVE); NITRATE,URINE NEGATIVE (NEGATIVE); OCCULT BLOOD,URINE NEGATIVE (NEGATIVE); PROTEIN,URINE TRACE mg/dL (NEGATIVE); SPECIFIC GRAVITIY, URINE 1.022 (1.003-1.030); UROBILINOGEN,URINE <=1.0 mg/dL (<=1.0)
[2024-10-24] MEDS: SODIUM CHLORIDE 0.9% 1,000 ML IV ONE (00:26)
[2024-10-24 01:51] LABS: TROPONIN I-HIGH SENSITIVITY 63 ng/L (<51)
[2024-10-24 03:35] VITALS: BP 158/74; PULSE 74; RESP 20; TEMP 97.5; O2SAT 98
[2024-10-24 08:25] VITALS: BP 122/75; PULSE 74; RESP 19; TEMP 97.5; O2SAT 98
[2024-10-24] MEDS: MULTIVITAMINS, THERAPEUTIC TABLET PO SCH (08:25)
[2024-10-24] MEDS: ASPIRIN 81 MG CHEWABLE TABLET PO SCH (08:25)
[2024-10-24] MEDS: FERROUS SULFATE 325 MG EC TABLET PO SCH (08:26)
[2024-10-24] MEDS: APIXABAN 5 MG TABLET PO SCH (08:26)
[2024-10-24] MEDS: FUROSEMIDE 40 MG TABLET PO SCH (08:26)
[2024-10-24] MEDS: METOPROLOL TARTRATE 25 MG TABLET PO SCH (08:26)
[2024-10-24] MEDS: CHOLECALCIFEROL (VIT D3) 5,000 [125 MCG] UNITS CAPSULE PO SCH (08:26)
[2024-10-24] MEDS: ATORVASTATIN CALCIUM 10 MG TABLET PO SCH (08:26)
[2024-10-24] MEDS: GABAPENTIN 300 MG CAPSULE PO SCH (08:26)
[2024-10-24] MEDS: CITALOPRAM HYDROBROMIDE 10 MG TABLET PO SCH (08:26)
[2024-10-24] MEDS ORDERED: CITALOPRAM HYDROBROMIDE 20 MG TABLET PO SCH (09:00)
[2024-10-24 11:45] VITALS: BP 101/62; PULSE 56; RESP 19; TEMP 98.6; O2SAT 98
[2024-10-24 16:03] VITALS: BP 108/75; PULSE 61; RESP 19; TEMP 98.2; O2SAT 98
[2024-10-24 19:45] VITALS: BP 97/58; PULSE 63; RESP 18; TEMP 98.6; O2SAT 98
[2024-10-24] MEDS: MELATONIN 5 MG TABLET PO SCH (20:20)
[2024-10-25] VITALS (7 sets, daily range): BP systolic 90–110; BP diastolic 58–77; PULSE 51–65; RESP 17–20; TEMP 97.5–98.4; O2SAT 95–99
[2024-10-25 09:58] LABS: BASOPHILS % (AUTO) 0.5 % (0.0-2.0); EOSINOPHILS % (AUTO) 1.9 % (1.0-6.0); HEMATOCRIT 40.8 % (36-46); HEMOGLOBIN 13.5 g/dL (12.0-16.0); LYMPHOCYTES # (AUTO) 1.4 K/uL (1.0-4.8); LYMPHOCYTES % (AUTO) 25.1 % (22.0-44.0); MEAN CORPUSCULAR HEMOGLOBIN 33.6 pg (26.0-34.0); MEAN CORPUSCULAR HGB CONC 33.1 G/dL (31.0-37.0); MEAN CORPUSCULAR VOLUME 101 fL (80-100); MONOCYTES # (AUTO) 0.5 K/uL (0.1-1.0); MONOCYTES % (AUTO) 9.4 % (2.0-9.0); NEUTROPHILS # (AUTO) 3.5 K/uL (1.8-7.7); NEUTROPHILS % (AUTO) 63.1 % (40.0-70.0); PLATELET COUNT (AUTO) 171 K/uL (150-450); RED BLOOD CELL COUNT(AUTO) 4.03 MIL/uL (4.00-5.20); RED CELL DISTRIBUTION WIDTH 13.2 % (11.5-14.5); WHITE BLOOD COUNT (AUTO) 5.6 K/uL (4.5-11.0)
[2024-10-25 09:59] LABS: RBC MORPHOLOGY COMMENT ABNORMAL RBC MORPH
[2024-10-25 10:07] LABS: CALCIUM, TOTAL 9.4 mg/dL (8.8-10.5); CREATININE 1.13 mg/dL (0.60-1.30); POTASSIUM 3.9 mmol/L (3.5-5.1)
[2024-10-25 10:23] LABS: BILIRUBIN,TOTAL 1.1 mg/dL (0.1-1.0); TOTAL PROTEIN, SERUM 8.1 g/dL (6.4-8.2)
[2024-10-25 10:24] LABS: ALBUMIN 3.5 g/dL (3.4-5.0)
[2024-10-25] MEDS ORDERED: BISACODYL 10 MG RECTAL RECTAL SUPPOSITORY PR PRN (10:45)
[2024-10-25] MEDS ORDERED: ONDANSETRON HCL 4 MG/2 ML VIAL IVP PRN (10:45)
[2024-10-25] MEDS ORDERED: ACETAMINOPHEN 325 MG TABLET PO PRN (10:45)
[2024-10-25] MEDS ORDERED: MAGNESIUM HYDROXIDE SUSPENSION 30 ML UDCUP PO PRN (10:45)
[2024-10-25] MEDS ORDERED: ZOLPIDEM TARTRATE 5 MG TABLET PO PRN (10:45)
[2024-10-25] MEDS ORDERED: IPRATROPIUM BROMIDE 0.5 MG/2.5 ML NEB SOLUTION NEB PRN (10:45)
[2024-10-25] MEDS ORDERED: ALBUTEROL SULFATE 2.5 MG/0.5 ML NEB SOLUTION NEB PRN (10:45)
[2024-10-25] MEDS ORDERED: MORPHINE SULFATE 2 MG/ML SYRINGE IVP PRN (10:45)
[2024-10-25] MEDS: SODIUM CHLORIDE 0.9% 1,000 ML IV SCH (11:30)
[2024-10-25] MEDS: HYDROCODONE/ACETAMINOPHEN 5-325 MG TABLET PO PRN (18:04)
[2024-10-25] MEDS: FUROSEMIDE 40 MG/4 ML VIAL IVP ONE (20:15)
[2024-10-25] MEDS: DOCUSATE SODIUM 100 MG CAPSULE PO SCH (21:07)
[2024-10-25] MEDS: GABAPENTIN 300 MG CAPSULE PO SCH (21:10)
[2024-10-26 03:41] VITALS: BP 121/80; PULSE 48; RESP 18; TEMP 97.5; O2SAT 98
[2024-10-26 06:24] LABS: ANION GAP 6 mmol/L (8-16); CALCIUM, TOTAL 8.7 mg/dL (8.8-10.5); CARBON DIOXIDE 27 mmol/L (22-29); CHLORIDE 103 mmol/L (98-107); CREATININE 0.91 mg/dL (0.60-1.30); GLOMERULAR FILTR. RATE CALC > 60 mL/min (>60); GLUCOSE,RANDOM 77 mg/dL (70-110); POTASSIUM 3.9 mmol/L (3.5-5.1); SODIUM SERUM 136 mmol/L (136-145); UREA NITROGEN, BLOOD 25 mg/dL (7-18)
[2024-10-26 07:55] VITALS: BP 108/72; PULSE 50; RESP 18; TEMP 97.8; O2SAT 97
[2024-10-26] MEDS: PANTOPRAZOLE SODIUM 40 MG/VIAL IVP SCH (08:11)
[2024-10-26 11:30] VITALS: BP 124/81; PULSE 49; RESP 18; TEMP 97.9; O2SAT 96
[2024-10-26 14:11] LABS: PH,URINE DRUG SCREEN 5.5 (5.0-8.0)
[2024-10-26 14:17] LABS: AMPHET/METH SCREEN,URINE NEGATIVE (NEGATIVE); BARBITURATE SCREEN, URINE NEGATIVE (NEGATIVE); BENZODIAZEPINES SCREEN,URINE NEGATIVE (NEGATIVE); CANNABINOID SCREEN,URINE POSITIVE (NEGATIVE); COCAINE SCREEN,URINE POSITIVE (NEGATIVE); METHADONE SCREEN, URINE NEGATIVE (NEGATIVE); OPIATE SCREEN,URINE POSITIVE (NEGATIVE); PHENCYCLIDINE SCREEN,URINE NEGATIVE (NEGATIVE)
[2024-10-26 14:18] LABS: ALCOHOL, URINE DRUG SCREEN NEGATIVE (NEGATIVE)
[2024-10-26 15:38] VITALS: BP 120/79; PULSE 52; RESP 18; TEMP 98; O2SAT 97
[2024-10-26 19:30] VITALS: BP 112/60; PULSE 60; RESP 18; TEMP 97.3; O2SAT 98
[2024-10-27] VITALS (7 sets, daily range): BP systolic 106–130; BP diastolic 65–86; PULSE 47–58; RESP 18–19; TEMP 97.5–97.7; O2SAT 96–100
[2024-10-27 06:22] LABS: ANION GAP 7 mmol/L (8-16); CALCIUM, TOTAL 8.7 mg/dL (8.8-10.5); CARBON DIOXIDE 27 mmol/L (22-29); CHLORIDE 104 mmol/L (98-107); CREATININE 0.79 mg/dL (0.60-1.30); GLOMERULAR FILTR. RATE CALC > 60 mL/min (>60); GLUCOSE,RANDOM 90 mg/dL (70-110); POTASSIUM 4.3 mmol/L (3.5-5.1); SODIUM SERUM 138 mmol/L (136-145); UREA NITROGEN, BLOOD 18 mg/dL (7-18)
[2024-10-27 06:32] LABS: MAGNESIUM 2.1 mg/dL (1.80-2.40); PHOSPHORUS 3.3 mg/dL (2.5-4.9)
[2024-10-28 04:04] VITALS: BP 100/59; PULSE 52; RESP 18; TEMP 97.5; O2SAT 97
[2024-10-28 07:12] LABS: ANION GAP 5 mmol/L (8-16); CALCIUM, TOTAL 8.6 mg/dL (8.8-10.5); CARBON DIOXIDE 28 mmol/L (22-29); CHLORIDE 107 mmol/L (98-107); CREATININE 0.82 mg/dL (0.60-1.30); GLOMERULAR FILTR. RATE CALC > 60 mL/min (>60); GLUCOSE,RANDOM 84 mg/dL (70-110); POTASSIUM 4.4 mmol/L (3.5-5.1); SODIUM SERUM 140 mmol/L (136-145); UREA NITROGEN, BLOOD 15 mg/dL (7-18)
[2024-10-28 07:27] VITALS: BP 133/76; PULSE 52; RESP 18; TEMP 97.5; O2SAT 98
[2024-10-28 11:12] VITALS: BP 119/71; PULSE 50; RESP 18; TEMP 97.7; O2SAT 97
[2024-10-28] MEDS ORDERED: GABA-1181 PO (14:04)
[2024-10-28 15:28] VITALS: BP 121/64; PULSE 55; RESP 18; TEMP 97.8; O2SAT 98
[2024-10-28 19:18] VITALS: BP 100/54; PULSE 53; RESP 18; TEMP 97.9; O2SAT 97
[2024-10-28 23:36] VITALS: BP 103/67; PULSE 55; RESP 18; TEMP 97.7; O2SAT 97
[2024-10-29 04:11] VITALS: BP 132/79; PULSE 51; RESP 18; TEMP 97.7; O2SAT 99
[2024-10-29 06:46] LABS: ANION GAP 6 mmol/L (8-16); CALCIUM, TOTAL 8.7 mg/dL (8.8-10.5); CARBON DIOXIDE 27 mmol/L (22-29); CHLORIDE 106 mmol/L (98-107); GLOMERULAR FILTR. RATE CALC > 60 mL/min (>60); GLUCOSE,RANDOM 79 mg/dL (70-110); SODIUM SERUM 139 mmol/L (136-145); UREA NITROGEN, BLOOD 11 mg/dL (7-18)
[2024-10-29 07:06] LABS: MAGNESIUM 1.7 mg/dL (1.80-2.40)
[2024-10-29 08:05] VITALS: BP 115/74; PULSE 47; RESP 18; TEMP 97.5; O2SAT 99
[2024-10-29 12:00] VITALS: BP 111/65; PULSE 50; RESP 18; TEMP 97.7; O2SAT 97
[2024-10-29 16:39] VITALS: BP 113/59; PULSE 54; RESP 18; TEMP 97.7; O2SAT 100
== END 2024-10-29 18:10 | disposition home or self-care (01) | DRG 70 ==
LOC: EMS 23:12 → EDH 23:52 → 5S 10-24 03:20
PROVIDERS: ADMIT Hospitalist; ATTEND Hospitalist
DX: G93.40 Encephalopathy, unspecified (principal); I50.23 Acute on chronic systolic (congestive) heart failure; M62.82 Rhabdomyolysis; E78.5 Hyperlipidemia, unspecified; F17.210 Nicotine dependence, cigarettes, uncomplicated; F11.10 Opioid abuse, uncomplicated; F14.10 Cocaine abuse, uncomplicated; F12.10 Cannabis abuse, uncomplicated; I11.0 Hypertensive heart disease with heart failure; I48.91 Unspecified atrial fibrillation; Z88.0 Allergy status to penicillin; Z91.83 Wandering in diseases classified elsewhere; Z95.810 Presence of automatic (implantable) cardiac defibrillator; Z79.82 Long term (current) use of aspirin; Z79.899 Other long term (current) drug therapy; Z71.6 Tobacco abuse counseling; G90.89 Other disorders of autonomic nervous system
CPT/HCPCS: 70450; 71045; 72125; 80048; 80053; 80076; 80307; 81003; 82550; 83735; 83880; 84100; 84484; 85025; 93005; 97116; 97163; 97166; 97535; 99285; G0378; J2470; J7030; 36415-L1; 36415-TC